=== PATIENT | female | born 1955 | race American Indian/Alaskan Native ===

== ENCOUNTER 2021-01-04 14:46 | Outpatient (REF) | payer MEDICARE, MEDICAID, SELFPAY ==
[2021-01-04 16:52] LABS: Alanine Aminotransferase 9 U/L (0-31); Alkaline Phosphatase 98 U/L (39-117); Anion Gap 14 (12-20); Aspartate Amino Transferase 17 U/L (5-31); Bilirubin Total 0.4 mg/dL (0.0-1.0); Blood Urea Nitrogen 17 mg/dL (9-16); Calcium 9.1 mg/dL (8.4-10.2); Carbon Dioxide 26 mmol/L (22-29); Chloride 105 mmol/L (96-108); Estimated Glomerular Filt Rate 53; Glucose Random 83 mg/dL (60-115); Potassium 4.1 mmol/L (3.3-5.1); Sodium 141 mmol/L (135-145); Total Protein 6.8 g/dL (6.5-8.0)
== END 2021-01-04 14:47 | disposition home or self-care (01) ==
LOC: HO.LAB 14:46
PROVIDERS: PCP Pediatrics; Visit Provider Student in an Organized Health Care Education/Training Program
DX: M17.0 Bilateral primary osteoarthritis of knee (principal); M25.50 Pain in unspecified joint; Z79.899 Other long term (current) drug therapy
CPT/HCPCS: 36415; 80053; 99212

== ENCOUNTER → 2021-06-11 12:48 | Outpatient (BNVA) | payer MEDICARE, MEDICAID, SELFPAY | PROVIDERS: PCP Pediatrics; Visit Provider Nurse Practitioner Family | DX: M17.0 Bilateral primary osteoarthritis of knee (principal) | CPT/HCPCS: 99212 ==

== ENCOUNTER → 2022-07-09 13:48 | Outpatient (BNVA) | payer MEDICARE, MEDICAID, SELFPAY | PROVIDERS: PCP Pediatrics; Visit Provider Nurse Practitioner Family | DX: M17.0 Bilateral primary osteoarthritis of knee (principal) | CPT/HCPCS: 99212 ==

== ENCOUNTER 2023-03-27 10:13 | Outpatient (REF) | payer MEDICARE, MEDICAID, SELFPAY ==
--- NOTE | ~2023-03-27 | XR_ITS ---
EXAMINATION: Bilateral knee x-ray CLINICAL INFORMATION: Bilateral primary osteoarthritis COMPARISON: Previous x-rays most recent from 2018 TECHNIQUE: 3 views of each knee FINDINGS: Right: Bone alignment is normal. No fracture or dislocation. Severe tricompartment osteoarthritis. Large joint effusion. Left: Slight varus angulation. Bone alignment is otherwise normal. No fracture or dislocation. Severe tricompartment arthritis. Small to moderate joint effusion. XR/XR knee RT 3V IMPRESSION: Severe bilateral osteoarthritis.
--- NOTE | ~2023-03-27 | XR_ITS ---
EXAMINATION: Bilateral knee x-ray CLINICAL INFORMATION: Bilateral primary osteoarthritis COMPARISON: Previous x-rays most recent from 2018 TECHNIQUE: 3 views of each knee FINDINGS: Right: Bone alignment is normal. No fracture or dislocation. Severe tricompartment osteoarthritis. Large joint effusion. Left: Slight varus angulation. Bone alignment is otherwise normal. No fracture or dislocation. Severe tricompartment arthritis. Small to moderate joint effusion. XR/XR knee LT 3V IMPRESSION: Severe bilateral osteoarthritis.
[2023-03-27 11:18] LABS: MANUAL DIFF FLAG NO
[2023-03-27 11:37] LABS: Basophils Absolute Auto 0.1 X10*3/uL (0.0-0.2); Basophils Percent Auto 1.1 % (0-2); Eosinophils Absolute Auto 0.3 X10*3/uL (0.0-0.4); Eosinophils Percent Auto 4.9 % (0-4); Hematocrit 37.5 % (37.0-47.0); Hemoglobin 12.2 g/dl (12.0-16.0); Imm Gran Abs Auto 0.01 X10*3/uL (0.00-0.03); Imm Gran Pct Auto 0.2 % (0.0-0.4); Lymphocytes Absolute Auto 2.2 X10*3/uL (1.2-4.9); Lymphocytes Percent Auto 39.8 % (20-40); Mean Corpuscular HGB Conc 32.5 g/dl (31.0-35.0); Mean Corpuscular Hemoglobin 27.3 pg (27.0-33.0); Mean Corpuscular Volume 83.9 fL (80.0-98.0); Mean Platelet Volume 11.3 fL (9.4-12.3); Monocytes Absolute Auto 0.5 X10*3/uL (0.1-1.2); Monocytes Percent Auto 9.3 % (2-11); Neutrophils Absolute Auto 2.5 x10*3/uL (2.0-8.3); Neutrophils Percent Auto 44.7 % (45-73); Platelet Count 249 X10*3/uL (160-400); Red Blood Count 4.47 X10*6/uL (4.20-5.50); Red Cell Distribution Width 13.1 % (11.0-16.0); White Blood Count 5.5 X10*3/uL (4.8-10.8)
[2023-03-27 12:16] LABS: Alanine Aminotransferase 15 U/L (0-31); Alkaline Phosphatase 85 U/L (39-117); Anion Gap 11 (12-20); Aspartate Amino Transferase 19 U/L (5-31); Bilirubin Total 0.4 mg/dL (0.0-1.0); Blood Urea Nitrogen 18 mg/dL (9-16); Carbon Dioxide 26 mmol/L (22-29); Chloride 109 mmol/L (96-108); Estimated Glomerular Filt Rate 53; Glucose Random 89 mg/dL (60-115); Potassium 4.2 mmol/L (3.3-5.1); Sodium 142 mmol/L (135-145); Total Protein 6.9 g/dL (6.5-8.0)
== END 2023-03-27 10:14 | disposition home or self-care (01) ==
LOC: HO.HMGCX 10:13
PROVIDERS: PCP Pediatrics; Visit Provider Nurse Practitioner Family
DX: M17.0 Bilateral primary osteoarthritis of knee (principal); Z79.899 Other long term (current) drug therapy
CPT/HCPCS: 36415; 73562; 80053; 85025

== ENCOUNTER 2024-01-29 12:00 | Outpatient (REF) | payer MEDICARE, MEDICAID, SELFPAY ==
[2024-01-29 14:53] LABS: MANUAL DIFF FLAG NO
[2024-01-29 14:55] LABS: Appearance Urine Clear; Color Urine Yellow; Glucose Urine UA Negative (Negative); Leukocyte Esterase Urine Negative (Negative); Nitrite Urine Negative (Negative); PH 5.5 (5.0-9.0); Specific Gravity - Urine 1.015 (1.005-1.025); Urine Blood Negative (Negative); Urine Ketones Negative (Negative); Urine Protein Negative (Neg-Trace)
[2024-01-29 14:58] LABS: Basophils Absolute Auto 0.1 X10*3/uL (0.0-0.2); Basophils Percent Auto 1.1 % (0-2); Eosinophils Absolute Auto 0.2 X10*3/uL (0.0-0.4); Eosinophils Percent Auto 3.6 % (0-4); Hematocrit 39.2 % (37.0-47.0); Hemoglobin 13.1 g/dl (12.0-16.0); Imm Gran Abs Auto 0.01 X10*3/uL (0.00-0.03); Imm Gran Pct Auto 0.2 % (0.0-0.4); Lymphocytes Absolute Auto 2.1 X10*3/uL (1.2-4.9); Lymphocytes Percent Auto 34.3 % (20-40); Mean Corpuscular HGB Conc 33.4 g/dl (31.0-35.0); Mean Corpuscular Hemoglobin 27.5 pg (27.0-33.0); Mean Corpuscular Volume 82.4 fL (80.0-98.0); Mean Platelet Volume 10.9 fL (9.4-12.3); Monocytes Absolute Auto 0.6 X10*3/uL (0.1-1.2); Monocytes Percent Auto 9.8 % (2-11); Neutrophils Absolute Auto 3.1 x10*3/uL (2.0-8.3); Platelet Count 285 X10*3/uL (160-400); Red Blood Count 4.76 X10*6/uL (4.20-5.50); Red Cell Distribution Width 13.3 % (11.0-16.0); White Blood Count 6.1 X10*3/uL (4.8-10.8)
[2024-01-29 15:03] LABS: Estimated Average Glucose 117 mg/dL; Hemoglobin A1c % 5.7 % (<6.0)
[2024-01-29 15:19] LABS: Alanine Aminotransferase 12 U/L (0-31); Albumin Level 4.1 g/dL (3.5-5.0); Alkaline Phosphatase 76 U/L (39-117); Anion Gap 13 (12-20); Aspartate Amino Transferase 18 U/L (5-31); Bilirubin Direct 0.2 mg/dL (0.0-0.5); Bilirubin Total 0.5 mg/dL (0.0-1.0); Blood Urea Nitrogen 16 mg/dL (9-16); Calcium 9.6 mg/dL (8.4-10.2); Carbon Dioxide 25 mmol/L (22-29); Chloride 107 mmol/L (96-108); Cholesterol 189 mg/dL (<200); Estimated Glomerular Filt Rate > 60; Glucose Fasting 87 mg/dL (60-99); HDL Cholesterol 61 mg/dL (>40); LDL Cholesterol Calculated 112 mg/dL (<100); Potassium 3.7 mmol/L (3.3-5.1); Sodium 141 mmol/L (135-145); Total Protein 7.5 g/dL (6.5-8.0); Triglycerides 82 mg/dL (<150)
[2024-01-29 15:27] LABS: TSH reflex Free T4 0.61 uIU/mL (0.32-4.0); Vitamin D 25-OH Total 49.7 ng/mL (>30)
[2024-01-29 15:37] LABS: Creatinine Urine 90.99 mg/dL; Microalbum/Creatinine Ratio Ur 6.5 ug/mg cr (<30)
== END 2024-01-29 12:01 | disposition home or self-care (01) ==
LOC: HO.CHCLDS 12:00
PROVIDERS: Visit Provider Pediatrics
DX: R73.01 Impaired fasting glucose (principal); I10 Essential (primary) hypertension
CPT/HCPCS: 36415; 80048; 80061; 80076; 81003; 82043; 82306; 82570; 83036; 84443; 85025

== ENCOUNTER 2024-05-10 10:52 | Outpatient (AMB) | payer MEDICARE, MEDICAID, SELFPAY ==
[2024-05-10 11:16] VITALS: BP 142/72; PULSE 75; O2SAT 99; BMI 36.5
--- NOTE | 2024-05-10 11:16 | A.OFFVIS_ITS ---
Vital Signs 05/10/24 11:16 Height 5 ft 1 in Weight 193 lb 5.526 oz BMI 36.5 BP 142/72 H Blood Pressure Location Lt brachial Position Sitting Pulse 75 Pulse Source Pulse Oximeter Pulse Oximetry (%) 99 Oxygen Delivery Method Room Air Intake Visit Reasons: oa/CM Intake Note: Patient last seen o 07/09/2022 by Emilia Dougherty present today for follow up. Patient would like Numbetone, Gabapentin, Minocycline. Burn Nurse Required: No Accompanied by: Self / Same As Patient Allergies adhesive tape [Adhesive Tape] Allergy (Mild, Verified 05/10/24 11:18) BLISTERS latex Allergy (Intermediate, Uncoded 05/10/24 11:18) burning Medication List - Last Reconciled 05/10/24 by David Weathers MD albuterol sulfate 90 mcg/actuation (Ventolin HFA) 2 puffs inhalation Q4H PRN bupropion HCl XL 150 mg PO QAM calcium carbonate-vitamin D3 500 mg-10 mcg (400 unit) 1 tab PO DAILY cyclobenzaprine 10 mg PO BEDTIME duloxetine 60 mg PO DAILY fluticasone propionate 50 mcg/actuation intranasal fluticasone propionate 220 mcg/actuation (Flovent HFA) 2 puffs inhalation BID gabapentin 300 mg PO TID ibuprofen 800 mg PO Q8H lisinopril 20 mg PO DAILY meclizine 25 mg PO TID PRN minocycline 50 mg PO DAILY nabumetone 750 mg PO BID omeprazole 20 mg PO DAILY simvastatin 40 mg PO DAILY trazodone 100 mg PO BEDTIME PRN HPI Comments Details: This is a 68-year-old female with bilateral knee osteoarthritis who presents for follow-up. She was last seen by Macrina Dougherty 06/2022. She states that she continues to have bilateral knee pain. She states that she saw an orthopedist in the past and knee replacement was discussed but patient does not want to proceed with it. She states that she had bilateral knee injections about a year ago and states that it provides moderate relief. She can not think of any side effects related to steroid injections. She does not have diabetes. [facility] Medical History Breast cancer Hyperlipidemia COPD (chronic obstructive pulmonary disease) Osteoarthritis Obesity Fibromyalgia HTN (hypertension) Surgical History H/O hemorrhoidectomy History of breast surgery Hx of hernia repair Hx of cholecystectomy Family History Father Diabetes Mother Breast cancer Son Lung cancer Social History Household Members: Significant Other Housing: House Alcohol intake: never Patient Tobacco Use Status: Former Tobacco user Review of Systems [facility] Reports arthralgias and Reports stiffness Physical Exam Vital Signs: Last Vital Signs Pulse 75 05/10/24 11:16 BP 142/72 H 05/10/24 11:16 Pulse Ox 99 05/10/24 11:16 Oxygen Delivery Method Room Air 05/10/24 11:16 BMI result Body Mass Index 36.5 Const General: cooperative, healthy appearing and comfortable Nutritional Appearance: obese morbidly obese Orientation/consciousness: patient oriented x3 Limitations: ambulation with cane HEENT Head: Yes normocephalic and Yes atraumatic Resp Effort & Inspection: normal respiratory effort and able to speak in complete sentences Skin General skin exam: no rashes or lesions noted Neuro General: patient oriented x3 Extrem Other: Bilateral knee warmth Bilateral knee pain with full flexion-extension Significantly limited left knee flexion Office Procedures Joint Injection/Drain Joint Injection/Drain Primary Site: right knee Secondary Site: left knee Prep: site was prepped using sterile technique and ethochloride spray was applied Injected: 40 mg of, Kenalog, with 1 mL of, 1% plain lidocaine and in the joint Approach Used: medial parapatellar Procedure: The patient tolerated the procedure well Coding Details: With the patient's consent the right knee was prepped with ChloraPrep and alcohol. The skin was anesthetized with 2 cc of 1% lidocaine. The knee was then injected with 40 mg of triamcinolone and 1 cc of I % lidocaine. Then, the left knee was prepped with ChloraPrep and alcohol. The skin was anesthetized with 2 cc of 1% lidocaine. The knee was then injected with 40 mg of triamcinolone and 1 cc of I % lidocaine. The patient tolerated both procedures well with no immediate adverse effects. - Large joint (Large joint x2) Procedure code (CPT) selection complete Results Reviewed Results Reviewed: Ordering Physician: Emilia Dougherty NP Date of Service: 03/27/23 Procedure(s): XR knee LT 3V Accession Number(s): [id number] cc: Emilia Dougherty NP~ EXAMINATION: Bilateral knee x-ray CLINICAL INFORMATION: Bilateral primary osteoarthritis COMPARISON: Previous x-rays most recent from 2018 TECHNIQUE: 3 views of each knee FINDINGS: Right: Bone alignment is normal. No fracture or dislocation. Severe tricompartment osteoarthritis. Large joint effusion. Left: Slight varus angulation. Bone alignment is otherwise normal. No fracture or dislocation. Severe tricompartment arthritis. Small to moderate joint effusion. XR/XR knee LT 3V IMPRESSION: Severe bilateral osteoarthritis. Assessment & Plan Assessment & Plan (1) Primary osteoarthritis of knees, bilateral: Code(s): M17.0 - Bilateral primary osteoarthritis of knee Category: Medical Plan: This is a 68-year-old female with fibromyalgia and bilateral knee osteoarthritis who presents for follow-up. She was last seen by Macrina Dougherty 06/2022. She states that she saw an orthopedist in the past and knee replacement was discussed but patient does not want to proceed with it. She states that she had bilateral knee injections about a year ago and states that it provides moderate relief. With patient's consent, both knees were injected with Kenalog today. Follow-up in 3 months Plan I spent 17 minutes reviewing patient's chart, evaluating patient, counseling patient and documenting in the chart Orders: Orders AMB Joint Injection/Aspiration Today M17.0 - Bilateral primary osteoarthritis of knee Coding Level of Care Code Est Pt Level 3 (37338) Diagnoses Primary osteoarthritis of knees, bilateral M17.0 CPT Codes Coding - 48047 Large joint: 93266 - Large joint ([id number])
== END 2024-05-10 11:55 | disposition home or self-care (01) ==
PROVIDERS: PCP Pediatrics; Visit Provider Student in an Organized Health Care Education/Training Program
DX: M17.0 Bilateral primary osteoarthritis of knee (principal)
CPT/HCPCS: 20610; 99213

== ENCOUNTER → 2024-05-10 10:52 | Outpatient (BNVA) | payer MEDICARE, MEDICAID, SELFPAY | PROVIDERS: PCP Pediatrics; Visit Provider Student in an Organized Health Care Education/Training Program | DX: M17.0 Bilateral primary osteoarthritis of knee (principal) | CPT/HCPCS: 20610; 99212; J2003; J3301 ==

== ENCOUNTER 2024-08-10 11:30 | Outpatient (AMB) | payer MEDICARE, MEDICAID, SELFPAY ==
--- NOTE | 2024-08-10 11:33 | A.OFFVIS_ITS ---
Vital Signs 08/10/24 11:37 Height 5 ft 1 in Weight 188 lb 7.924 oz BMI 35.6 BP 122/70 Blood Pressure Location Lt brachial Position Sitting Pulse 86 Pulse Source Pulse Oximeter Pulse Oximetry (%) 97 Oxygen Delivery Method Room Air Intake Visit Reasons: Knee OA/inj Intake Note: Patient presents for knee OA/injection. Allergies adhesive tape [Adhesive Tape] Allergy (Mild, Verified 08/10/24 11:37) BLISTERS latex Allergy (Intermediate, Uncoded 05/10/24 11:18) burning Medication List - Last Reconciled 08/10/24 by David Weathers MD albuterol sulfate 90 mcg/actuation (Ventolin HFA) 2 puffs inhalation Q4H PRN bupropion HCl XL 150 mg PO QAM calcium carbonate-vitamin D3 500 mg-10 mcg (400 unit) 1 tab PO DAILY cyclobenzaprine 10 mg PO BEDTIME duloxetine 60 mg PO DAILY fluticasone propionate 50 mcg/actuation intranasal fluticasone propionate 220 mcg/actuation (Flovent HFA) 2 puffs inhalation BID gabapentin 300 mg PO TID ibuprofen 800 mg PO Q8H lisinopril 20 mg PO DAILY meclizine 25 mg PO TID PRN minocycline 50 mg PO DAILY nabumetone 750 mg PO BID omeprazole 20 mg PO DAILY simvastatin 40 mg PO DAILY trazodone 100 mg PO BEDTIME PRN HPI Comments Details: 69-year-old female with bilateral knee osteoarthritis returns for follow-up. She states that bilateral knee cortisone injections done 3 months ago provided moderate relief but she feels that the effect is wearing off and would like repeat injections. Initial history: This is a 68-year-old female with bilateral knee osteoarthritis who presents for follow-up. She was last seen by Macrina Dougherty 06/2022. She states that she continues to have bilateral knee pain. She states that she saw an orthopedist in the past and knee replacement was discussed but patient does not want to proceed with it. She states that she had bilateral knee injections about a year ago and states that it provides moderate relief. She can not think of any side effects related to steroid injections. She does not have diabetes. [facility] Medical History Breast cancer Hyperlipidemia COPD (chronic obstructive pulmonary disease) Osteoarthritis Obesity Fibromyalgia HTN (hypertension) Surgical History H/O hemorrhoidectomy History of breast surgery Hx of hernia repair Hx of cholecystectomy Family History Father Diabetes Mother Breast cancer Son Lung cancer Social History Household Members: Significant Other Housing: House Alcohol intake: never Patient Tobacco Use Status: Former Tobacco user Female Reproductive History Menstrual Total pregnancies: 3 Number of Living Children: 3 Review of Systems [facility] Reports arthralgias and Reports stiffness Physical Exam Vital Signs: Last Vital Signs Pulse 86 08/10/24 11:37 BP 122/70 08/10/24 11:37 Pulse Ox 97 08/10/24 11:37 Oxygen Delivery Method Room Air 08/10/24 11:37 BMI result Body Mass Index 35.6 Const General: cooperative, healthy appearing and comfortable Nutritional Appearance: obese morbidly obese Orientation/consciousness: patient oriented x3 Limitations: ambulation with cane HEENT Head: Yes normocephalic and Yes atraumatic Resp Effort & Inspection: normal respiratory effort and able to speak in complete sentences Skin General skin exam: no rashes or lesions noted Neuro General: patient oriented x3 Extrem Other: Bilateral knee warmth Bilateral knee pain with full flexion-extension Significantly limited left knee flexion Office Procedures Joint Injection/Aspiration Joint Injection/Aspiration Primary Site: right knee Secondary Site: left knee Prep: site was prepped using sterile technique and ethochloride spray was applied Injected: 40 mg of, Kenalog, with 1 mL of, 1% plain lidocaine and in the joint Approach Used: medial parapatellar Procedure: The patient tolerated the procedure well Coding Details: With the patient's consent the left knee was prepped with ChloraPrep and alcohol. The skin was anesthetized with 2 cc of 1% lidocaine. The knee was then injected with 40 mg of triamcinolone and 1 cc of I % lidocaine. With the patient's consent the right knee was prepped with ChloraPrep and alcohol. The skin was anesthetized with 2 cc of 1% lidocaine. The knee was then injected with 40 mg of triamcinolone and 1 cc of I % lidocaine. The patient tolerated both procedures well with no apparent immediate adverse effects. 72107 - Large joint (Large joint x2) Procedure code (CPT) selection complete Assessment & Plan Assessment & Plan (1) Primary osteoarthritis of knees, bilateral: Code(s): M17.0 - Bilateral primary osteoarthritis of knee Category: Medical Plan: This is a 69-year-old female with fibromyalgia and bilateral knee osteoarthritis who presents for follow-up. She states that she saw an orthopedist in the past and knee replacement was discussed but patient does not want to proceed with it. Last visit 3 months ago both knees were injected with Kenalog with good relief. She feels that the effect is wearing off and would like repeat injections. With patient's consent, both knees were injected with Kenalog today. Follow-up in 3 months Plan I spent 17 minutes reviewing patient's chart, evaluating patient, counseling patient and documenting in the chart Orders: Orders AMB Joint Injection/Aspiration Today M17.0 - Bilateral primary osteoarthritis of knee Coding Level of Care Code Est Pt Level 3 (69647) Diagnoses Primary osteoarthritis of knees, bilateral M17.0 CPT Codes Coding - 84367 Large joint: 32873 - Large joint ([id number])
[2024-08-10 11:37] VITALS: BP 122/70; PULSE 86; O2SAT 97; BMI 35.6
== END 2024-08-10 12:02 | disposition home or self-care (01) ==
PROVIDERS: PCP Pediatrics; Visit Provider Student in an Organized Health Care Education/Training Program
DX: M17.0 Bilateral primary osteoarthritis of knee (principal)
CPT/HCPCS: 20610; 99213

== ENCOUNTER → 2024-08-10 11:30 | Outpatient (BNVA) | payer MEDICARE, MEDICAID, SELFPAY | PROVIDERS: PCP Pediatrics; Visit Provider Student in an Organized Health Care Education/Training Program | DX: M17.0 Bilateral primary osteoarthritis of knee (principal) | CPT/HCPCS: 20610; 99212 ==

== ENCOUNTER 2025-02-14 11:30 | Outpatient (AMB) | payer MEDICARE, MEDICAID, SELFPAY ==
--- NOTE | 2025-02-14 11:34 | A.OFFVIS_ITS ---
Vital Signs 02/14/25 11:39 Height 5 ft 1 in Weight 187 lb 6.287 oz BMI 35.4 BP 148/77 H Blood Pressure Location Lt brachial Position Sitting Pulse 94 Intake Visit Reasons: [place] screening + HPylori Intake Note: Ekaterina presents in the office as a Colonoscopy screening and H Pylori. CC: She states that she is not having any concerns - just due for a colo and tested pos for H PYLORI. She never got the treatment for the bacteria. Rn Residential Required: No Allergies adhesive tape [Adhesive Tape] Allergy (Mild, Verified 02/14/25 11:40) BLISTERS latex Allergy (Intermediate, Uncoded 02/14/25 11:40) burning HPI HPI [place] screening + HPylori: Details: 69-year-old female here for preprocedural meeting to discuss a screening colonoscopy. Apparently, she is also referred for an H pylori infection. She is referred by [facility]. PMX Obesity-BMI 32 COPD Hypertension High cholesterol Impaired fasting glucose Depression Vertigo GERD History of breast cancer Fibromyalgia syndrome * SURGICAL HISTORY Cholecystectomy Hemorrhoidectomy Hernia repair - umbilical Breast surgery - Rtlumpe catina Tonsillectomy * ALLERGIES Adhesive tape Latex * [employer] LABS: needs labs TODAY'S VISIT Apparently she recently had a positive Cologuard screening. Her last colonoscopy was >10 years ago and was negative. No bowel or upper GI problems. No anes or sed problems Her COPD is well controlled and she denies any cardiac problems. No ID problems. SHe has a strong FHX of breast, ovarian cancer on mothers side and her brother had stomach cancer. We discussed possible EGD but she wants to think about it. ? low education [facility] Medical History (Updated 02/14/25 @ 11:58 by NATASHA Esteves) Breast cancer Hyperlipidemia COPD (chronic obstructive pulmonary disease) Osteoarthritis Obesity Fibromyalgia HTN (hypertension) Surgical History (Updated 02/14/25 @ 11:40 by EHSAN Quijano) Hx of colonoscopy S/P carpal tunnel release H/O hemorrhoidectomy History of breast surgery Hx of hernia repair Hx of cholecystectomy Family History Father Diabetes Mother Breast cancer Son Lung cancer Social History Household Members: Significant Other Housing: House Alcohol intake: never Patient Tobacco Use Status: Former Tobacco user Review of Systems Const Denies fatigue, Denies fever(s), Denies night sweats, Denies poor appetite and Denies weight loss ENT Reports Normal hearing present, Denies dental pain, Denies dysphagia, Denies hearing loss, Denies mouth pain, Denies odynophagia, Denies throat swelling, Denies tongue swelling and Reports other (Dentition adequate) Card Reports no additional complaints Resp Reports no additional complaints GI Details: Denies abdominal pain, Denies melena, Denies bloating, Denies hematochezia, Denies constipation, Denies GI cramping, Denies dysphagia, Denies excessive flatus, Denies early satiety, Denies heartburn, Denies diarrhea, Denies nausea, Denies odynophagia, Denies vomiting and Denies hematemesis Skin/Breast Denies pruritus, Denies lesions, Denies rash and Denies jaundice Neuro Reports Normal hearing present and Denies Abnormal speech present Endo Denies fatigue Aller/Immun Denies throat swelling and Denies tongue swelling Physical Exam Vital Signs: Last Vital Signs Pulse 94 02/14/25 11:39 BP 148/77 H 02/14/25 11:39 BMI result Body Mass Index 35.4 Const General: cooperative, no acute distress, well developed and well groomed Nutritional Appearance: well nourished and obese Orientation/consciousness: oriented to person, oriented to place and oriented to time Limitations: No language barrier and ambulation with cane HEENT Head: Yes normocephalic and Yes atraumatic Eyes General: appearance normal, both eyes and all related structures Pupils: Equal, round and reactive pupils present Neck Neck: Yes normal visual inspection and Yes no lymphadenopathy Thyroid: Thyroid normal Resp Effort & Inspection: normal respiratory effort and able to speak in complete sentences Auscultation: clear to auscultation bilaterally Cardio Rate: regular rate Rhythm: regular rhythm Heart sounds: Normal, physiologic split S2 sound present Peripheral pulses: radial pulses present and posterior tibial pulses present GI Inspection: No distended, Yes Abdominal panniculus present, Yes obesity and Yes striae Palpation (GI): Soft to palpation, nontender, no guarding, not rigid and No hepatosplenomegaly present Percussion: Yes normal to percussion Auscultation: normal bowel sounds Rectal Exam - Female: deferred Skin General skin exam: no rashes or lesions noted, turgor normal, skin not dry, no jaundice, No spider nevi and no striae Rashes: no rashes Nails: normal Neuro General: oriented to person, oriented to place and oriented to time Cranial nerves: Yes Equal, round and reactive pupils present and Yes Normal hearing present Speech: No Abnormal speech present Extrem General: Yes normal to inspection, No clubbing, No cyanosis and No edema Psych Appearance: grossly normal and well kempt Mental Status: mental status grossly normal Speech and movement: Normal speech and movement present Affect: normal affect Attitude: cooperative Thought process: Circumstantial thought process present and not confabulating Thought content: Normal thought content present Insight: Limited insight present (Psych) Judgement: Limited judgement present (Psych) Assessment & Plan Assessment & Plan (1) Pre-op examination: Code(s): Z01.818 - Encounter for other preprocedural examination Category: Medical (2) GERD (gastroesophageal reflux disease): Code(s): K21.9 - Gastro-esophageal reflux disease without esophagitis Category: Medical (3) Obesity: Code(s): E66.9 - Obesity, unspecified Category: Medical Plan Apparently she recently had a positive Cologuard screening. Her last colonoscopy was >10 years ago and was negative. No bowel or upper GI problems. No anes or sed problems Her COPD is well controlled and she denies any cardiac problems. No ID problems. SHe has a strong FHX of breast, ovarian cancer on mothers side and her brother had stomach cancer. We discussed possible EGD but she wants to think about it. ? low education Orders: Orders Comprehensive Met. Panel Today Z01.818 - Encounter for other preprocedural examination Complete Blood Count Auto Diff Today Z01.818 - Encounter for other preprocedural examination Colonoscopy - GI Use Only Today Z01.818 - Encounter for other preprocedural examination Medications: New sodium,potassium,mag sulfates 17.5-3.13-1.6 gram (Suprep Bowel Prep Kit) 480 mL orally; FOR COLONOSCOPY PREP 354 mL 0RF Coding Level of Care Code New Pt Level 3 (55107) Diagnoses Pre-op examination Z01.818 GERD (gastroesophageal reflux disease) K21.9 Obesity E66.9
[2025-02-14 11:39] VITALS: BP 148/77; PULSE 94; BMI 35.4
--- OUTSIDE RECORDS SUMMARY | 2025-02-14 13:40 | XMS_ITS | Encounter Summary ---
Author Organization [employer] Address [address] [place] [address] Care Team Providers Care Mechanical Manager Name Role Phone Regi Martínez MD Primary Care Provider [phone] Reason for Visit * Reason Comments Med Refill Encounter Details Date Type Department Care Team ([facility] Contact Info) Description 01/15/2024 Refill [facility] MEDICINE [address], [place] [phone] Regi Martínez MD [address] [place], [place] [phone] Recurrent major depressive disorder, in full remission (CMS/HCC); Gastroesophageal reflux disease without esophagitis; Mixed hyperlipidemia; Vertigo Social History Tobacco Use Types Packs/Day Years Used Date Smoking Tobacco: Never Assessed Comments Unknown Sex and Gender Information Value Date Recorded Sex Assigned at Female 08/18/2022 10:19 AM EDT Legal Sex Female 10:19 AM EDT Gender Identity Female 01/29/2024 8:57 AM EDT Sexual Orientation Don't know 01/29/2024 8: 57 AM EDT documented as of this encounter Plan of Treatment Upcoming Encounters Date Type Department Care Team (Late st Contact Info) Description 03/15/2025 11:30 AM EDT Office Visit [facility] [address] [place] [address] Regi Martínez MD [address], [place] [phone] documented as of this encounter Visit Diagnoses Diagnosis Recurrent major depressive disorder, in full remission (CMS/HCC) Gastroesophageal reflux disease without esophagitis Esophageal reflux Mixed hyperlipidemia Vertigo Dizziness and giddiness documented in this encounter Care Teams Mechanical Manager Relationship Specialty Start Date End Date Regi Martínez MD [address] [place] [id number] PCP - General Family Medicine 10/19/18 documented as of this encounter
--- OUTSIDE RECORDS SUMMARY | 2025-02-14 13:40 | XMS_ITS | Clinical Summary ---
Author Organization [employer] Address [address] [facility] 7[address] [place] [address] Care Team Providers Care Entry Level Recruiter Name Role Phone Regi Martínez MD Primary Care Provider [phone] Allergies Active Allergy Reactions Criticality Noted Date Comments Latex 03/19/2017 Other Reaction(s): YAN ON SKIN, Rash/Dermatitis Wound Dressing Adhesive 01/29/2024 Medications * This document contains information received from the source organization and may not represent a complete record from that organization. hydrocortisone 2.5 % creamIndications: Rash APPLY TO AFFECTED AREA OF RECTUM TWICE A DAY 28 g 1 03/13/20 23 Active cholecalciferol (D3 Super Strength) 50 MCG (1999) capsule Take 1 capsule (50 mcg) by mouth Once per day. 90 capsule 3 04/26/20 24 Active tiotropium (Spiriva HandiHaler) 18 MCG inhalation capsuleIndication s: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) Place 1 capsule (18 mcg) into inhaler and inhale in the morning. 90 capsule 2 07/27/20 24 Active buPROPion XL (Wellbutrin XL) 150 MG 24 hr tabletIndications :Grief Take 1 tablet (150 mg) by mouth Once per day. Do not crush, chew, or split. 90 tablet 1 07/27/20 24 Active minocycline 50 MG capsule Take 1 capsule (50 mg) by mouth Once per day. 90 capsule 1 07/27/20 24 Active lisinopril 20 MG tabletIndications :Hypertension, unspecified type Take 1 tablet (20 mg) by mouth Once per day. 90 tablet 3 07/27/20 24 Active fluticasone (Flonase) 50 MCG/ACT nasal sprayIndications: Recurrent major depressive disorder, in full remission (CMS/HCC),Gastroe sophageal reflux disease without esophagitis,Mixed hyperlipidemia SPRAY 1 SPRAY INTO EACH NOSTRIL EVERY DAY WHILE LOOKING DOWN 48 mL 3 07/27/20 24 Active meclizine (Antivert) 25 MG tabletIndications :Vertigo Take 1 tablet (25 mg) by mouth if needed in the morning, at noon, and at bedtime for dizziness. 30 tablet 3 07/27/20 24 Active traZODone (Desyrel) 100 MG tablet TAKE 2 TABLETS BY MOUTH ONCE A DAY AT BEDTIME 180 tablet 1 07/27/20 24 Active VALACYCLOVIR HCL PO Take by mouth. 08/06/20 15 Active clotrimazole-beta methasone (Lotrisone) cream Apply topically every 12 (twelve) hours. 45 g 2 07/27/20 24 Active Calcium Carb-Cholecalcife rol 600-10 MG-MCG tablet Take 1 tablet by mouth every 12 (twelve) hours. 180 tablet 2 07/27/20 24 Active ibuprofen 800 MG tablet Take 1 tab orally tid prn pain 60 tablet 3 07/28/20 24 Active nabumetone (Relafen) 750 MG tablet Take 1 tablet (750 mg) by mouth if needed in the morning and at bedtime for mild pain. 60 tablet 3 07/28/20 24 Active Ventolin HFA 108 (90 Base) MCG/ACT inhalerIndication s: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) INHALE TWO PUFFS EVERY 4 HOURS NEEDED FOR WHEEZING 18 g 1 10/17/20 24 Active desonide (DesOwen) 0.05 % cream Apply topically 2 times daily. 15 g 3 12/14/19 25 Active Blood Pressure kit Check BP daily prn 1 kit 12/14/19 25 Active Mometasone Furoate (Asmanex HFA) 100 MCG/ACT aerosolIndication s: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) Inhale 1 puff bid 39 g 2 12/14/19 25 Active gabapentin (Neurontin) 300 MG capsule TAKE ONE CAPSULE AT BEDTIME 90 capsule 1 02/08/20 25 Active omeprazole (PriLOSEC) [address] capsuleIndication s:Recurrent major depressive disorder, in full remission (CMS/HCC),Gastroe sophageal reflux disease without esophagitis,Mixed hyperlipidemia TAKE ONE CAPSULE DAILY BEFORE BREAKFAST 90 capsule 1 02/08/20 25 Active DULoxetine (Cymbalta) [address] capsule TAKE ONE CAPSULE DAILY 90 capsule 1 02/09/20 25 Active simvastatin (Zocor) 40 MG tabletIndications :Recurrent major depressive disorder, in full remission (CMS/HCC),Gastroe sophageal reflux disease without esophagitis,Mixed hyperlipidemia TAKE ONE TABLET DAILY 90 tablet 1 02/09/20 25 Active simvastatin (Zocor) 40 MG tabletIndications :Recurrent major depressive disorder, in full remission (CMS/HCC),Gastroe sophageal reflux disease without esophagitis,Mixed hyperlipidemia Take 1 tablet (40 mg) by mouth Once per day. 90 tablet 1 07/27/20 24 025 Discontinued omeprazole (PriLOSEC) [address] capsuleIndication s:Recurrent major depressive disorder, in full remission (CMS/HCC),Gastroe sophageal reflux disease without esophagitis,Mixed hyperlipidemia Take 1 capsule (20 mg) by mouth before breakfast. 90 capsule 1 07/27/20 24 025 Discontinued DULoxetine (Cymbalta) [address] capsule Take 1 capsule (60 mg) by mouth Once per day. 90 capsule 1 07/27/20 24 025 Discontinued gabapentin (Neurontin) 300 MG capsule Take 1 capsule (300 mg) by mouth at bedtime. 90 capsule 1 07/27/20 24 025 Discontinued Active Problems Problem Noted Date Diagnosed Date Primary osteoarthritis of both knees 12/14/2024 Food insecurity 02/19/2024 Assessment & Plan (02/24/2024 11:01 AM EDT): During IBH Consult Ekaterina presenting with depressed mood, loss of interests/pleasure , changes in sleep difficulty falling asleep, change in appetite or weight reduce appetite, psychomotor retardation, trouble concentrating, thoughts of worthlessness or guilt, fatigue/loss of energy, inappropriate guilt , hopelessness, worthlessness , difficulty concentrating; for a period of 0-6 mo, for all symptoms in the context of and financial concern. Ekaterina's unexpectedly six months ago during a routine surgery at [facility]. This event has led to an increase of extreme sadness and hopelessness; and is impacting negatively Ekaterina's social functioning. Significant lack of support/network also exacerbates sxs. During today's session, Ekaterina also reported food insecurity and screening positive for SDOH. PLAN: (check all that apply) Continue with current services (defined as services in the past 12 months) . Referral for OP individual therapy placed on 02/04/24. Recommended [facility] numbers and the Behavioral Health Help Line for same-day appointments. Information provided. CM referral placed by clinician to assist with SDOH (food insecurity). Mixed simple and mucopurulent chronic bronchitis 02/01/2024 Grief 01/29/2024 Assessment & Plan (02/24/2024 11:01 AM EDT): During IBH Consult Ekaterina presenting with depressed mood, loss of interests/pleasure , changes in sleep difficulty falling asleep, change in appetite or weight reduce appetite, psychomotor retardation, trouble concentrating, thoughts of worthlessness or guilt, fatigue/loss of energy, inappropriate guilt , hopelessness, worthlessness , difficulty concentrating; for a period of 0-6 mo, for all symptoms in the context of and financial concern. Ekaterina's unexpectedly six months ago during a routine surgery at [facility]. This event has led to an increase of extreme sadness and hopelessness; and is impacting negatively Ekaterina's social functioning. Significant lack of support/network also exacerbates sxs. During today's session, Ekaterina also reported food insecurity and screening positive for SDOH. PLAN: (check all that apply) Continue with current services (defined as services in the past 12 months) . Referral for OP individual therapy placed on 02/04/24. Recommended [facility] numbers and the Behavioral Health Help Line for same-day appointments. Information provided. CM referral placed by clinician to assist with SDOH (food insecurity). Assessment & Plan (02/04/2024 12:48 PM EDT): During IBH Consult Ekaterina presenting with depressed mood, loss of interests/pleasure , changes in sleep difficulty falling asleep, change in appetite or weight reduce appetite, psychomotor retardation, trouble concentrating, thoughts of worthlessness or guilt, fatigue/loss of energy, inappropriate guilt , hopelessness, worthlessness , passive suicidal ideation w/o plan; for a period of 0-6 mo, for all symptoms in the context of . Ekaterina's unfortunately unexpectedly six months ago. This event has led to an increase of extreme sadness and hopelessness; and is impacting negatively her social functioning. Significant lack of support/network also exacerbates sxs. PLAN: (check all that apply) New/Additional Services needed On-site non-integrated services Off-site services for Behavioral Health Integration Plan Internal Follow up with I External OP therapy referral Patient Self Plan Patient to utilize skills provided in intervention , Patient to reach out to [facility] team as needed, Comply with medication , Patient to engage in OP therapy , and Patient to reach out to [facility] as needed Hypertension 2012 Mixed hyperlipidemia 2012 Chronic obstructive lung disease 2012 Overweight 2012 Malignant neoplasm of breast 05/08/2010 Encounters Date Type Department Care Team Description 02/14/2025 Orders Only GENERIC EXTERNAL DATA DEPARTMENT Provider, Generic External Data 02/07/2025 Refill [facility] [address] [place] [address] Regi Martínez MD Recurrent major depressive disorder, in full remission (CMS/HCC); Gastroesophageal reflux disease without esophagitis; Mixed hyperlipidemia 02/04/2025 Refill [facility] [address] [place] [address] Regi Martínez MD Recurrent major depressive disorder, in full remission (CMS/HCC); Gastroesophageal reflux disease without esophagitis; Mixed hyperlipidemia 12/30/2024 Population Health Risk Score [facility] () Department [address] [place] [phone] Provider, Population Health Generic 12/14/2024 11:30 AM EST Office Visit [facility] [address] [place] [address] Regi Martínez MD Overweight (Primary Dx); Dietary counseling; Exercise counseling; 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); Grief; Hypertension, unspecified type; Primary osteoarthritis of both knees 12/14/2024 Travel 11/25/2024 Telephone [facility] [address] [place], [place] [phone] Regi Martínez MD 11/16/2024 Travel from Last 3 Months Social History Tobacco Use Types Packs/Day Years Used Date Smoking Tobacco: Never Passive Smoke Exposure: Never Smokeless Tobacco: Never Tobacco Cessation:Counseling Given: Not Answered Depression Answer Date Recorded Patient Health Questionnaire-9 Score 0 12/14/2024 Patient Health Questionnaire-9 Score 0 12/14/2024 Last PHQ-9: Questionnaire Data Not on file 0 12/14/2024 Housing Stability Answer Date Recorded What is your housing situation today? I have francesca rajput 01/29/[address] you li ve. Do you have problems with any of the following? None of the above 01/29/2024 Food Insecurity Answer Date Recorded Within the past 12 months, y ou worried that your food would run out before you got money to buy more: Never True 01/29/2024 Within the past 12 months,th e food you bought just didn't last and you didn't have enough money to get more: Never True 09/2024 Transportation Answer Date Recorded In the past 12 months, has l ack of transportation kept you from medical appts, meetings, work or from getting things needed for daily living? Yes, it has kept me from non-medical meetings, work, or getting things that I need 01/29/2024 Utilities Answer Date Recorded In the past 12 months, has t he electric, gas, oil or water company threatened to shut off services in your home? No 01/29/2024 Depression Answer Date Recorded Patient Health Questionnaire-2 Score 0 12/14/2024 Comments Unknown Sex and Gender Information Value Date Recorded Sex Assigned at Female 08/18/2022 10:19 AM EDT Legal Sex Female 10:19 AM EDT Gender Identity Female 01/29/2024 8:57 AM EDT Sexual Orientation Don't know 01/29/2024 8: 57 AM EDT Last Filed Vital Signs Vital Sign Reading Time Taken Comments Blood Pressure 140/84 12/14/2024 11:01 AM EST Pulse 84 12/14/2024 11:01 AM EST Temperature 36.3 ??C (97.3 ??F) 12/14/2024 11:[address] Respiratory Rate 20 12/14/2024 11:01 AM EST Oxygen Saturation 97% 12/14/2024 11:01 AM EST Inhaled Oxygen Concentration - - Weight 87 kg (191 lb 12.8 oz) 12/14/2024 11:01 A M EST Height 158 cm (5' 2.21 ) 12/14/2024 11:01 AM EST Body Mass Index 34.85 12/14/2024 11:01 AM EST Plan of Treatment Upcoming Encounters Date Type Department Care Team ([facility] st Contact Info) Description 03/15/2025 11:30 AM EDT Office Visit [facility] [address] [place] [address] Regi Martínez MD [address] [place] [address] Health Maintenance Due Date Last Done Comments CT Colonography 1953 Colonoscopy 1953 FIT 1953 FOBT 1955 Sigmoidoscopy 1953 Hepatitis C Screening 1971 Zoster Vaccines (1 of 2) 2003 RSV Patients and Patients Aged 60 years or older (1 - Risk 60-74 years 1-dose series) 2013 Pneumococcal Vaccine: 50+ Years (2 of 2 - PPSV23) 09/03/2018 07/09/2018 COVID-19 Vaccine ( - 2023-2 5 season) 2024 Influenza Vaccine (#1) 2024 9, 07/01/2013 Mammogram 09/02/2024 09/02/2023 SDOH Screening 01/28/2025 01/29/2024 Tobacco Screening 01/28/2025 01/29/2024 Alcohol/Substance Use Screening 12/14/2025 12/14/2024 Depression Screening 12/14/2025 12/14/2024, 12/14/2024 Colorectal Cancer Screening 02/14/2027 FIT DNA/Cologuard 02/14/2027 02/15/2024 DTaP/Tdap/Td Vaccines (2 - T d or Tdap) 11/25/2028 11/25/2018 Lipid Panel 01/28/2029 01/29/2024 HIB Vaccines Aged Out No longer eligi ble based on patient's age to complete this topic HPV Vaccines Aged Out No longer eligi ble based on patient's age to complete this topic Hepatitis A Vaccines Aged Out No long er eligible based on patient's age to complete this topic Hepatitis B Vaccines Aged Out No long er eligible based on patient's age to complete this topic IPV Vaccines Aged Out No longer eligi ble based on patient's age to complete this topic Meningococcal Vaccine Aged Out No netta susan eligible based on patient's age to complete this topic RSV under 20 months Aged Out No longe r eligible based on patient's age to complete this topic Rotavirus Vaccines Aged Out No longer eligible based on patient's age to complete this topic Procedures Procedure Name Priority Date/Time Associated Diagnosis Comments CBC WITH AUTO DIFFERENTIAL Routine 02/14/2025 12:59 PM EDT LAB COLOGUARD?? COLON CANCER SCREEN Routine 02/15/2024 5:00 AM EDT Primary hypertension Colon cancer screening LIPID PANEL, STANDARD Routine 01/29/2024 12:02 PM EDT Primary hypertension HM MAMMOGRAPHY Routine 09/02/2023 5:19 PM EST from Last 3 Months or Most Recently Relevant to Health Maintenance Results * (ABNORMAL) CBC auto differential (02/14/2025 12:59 PM EDT) White Blood Count 6.6 4.8 - 10.8 X10*3/uL [facility] Red Blood Count 4.72 4.20 - 5.50 X10*6/uL [facility] Hemoglobin 13.6 12.0 - 16.0 g/dl [facility] Hematocrit 40.4 37.0 - 47.0 % [facility] Mean Corpuscular Volume 85.6 80.0 - 98.0 fL [facility] Mean Corpuscular Hemoglobin 28.8 27.0 - 33.0 pg [facility] Mean Corpuscular HGB Conc 33.7 31.0 - 35.0 g/dl [facility] Red Cell Distribution Width 12.7 11.0 - 16.0 % [facility] Platelet Count 257 160 - 400 X10*3/uL [facility] Mean Platelet Volume 10.5 9.4 - 12.3 fL [facility] Neutrophils Percent Auto 45.6 45 - 73 % [facility] Imm Gran Pct Auto 0.5(H) 0.0 - 0.4 % [facility] Lymphocytes Percent Auto 39.1 20 - 40 % [facility] Monocytes Percent Auto 8.8 2 - 11 % [facility] Eosinophils Percent Auto 5.2(H) 0 - 4 % [facility] Basophils Percent Auto 0.8 0 - 2 % [facility] NRBC Pct Auto 0.0 0.0 - 0.2 /100WBC [facility] Neutrophils Absolute Auto 3.0 2.0 - 8.3 x10*3/uL [facility] Imm Gran Abs Auto 0.03 0.00 - 0.03 X10*3/uL [facility] Lymphocytes Absolute Auto 2.6 1.2 - 4.9 X10*3/uL [facility] Monocytes Absolute Auto 0.6 0.1 - 1.2 X10*3/uL [facility] Eosinophils Absolute Auto 0.3 0.0 - 0.4 X10*3/uL [facility] Basophils Absolute Auto 0.1 0.0 - 0.2 X10*3/uL [facility] NRBC Abs Auto 0.000 0.0 - 0.012 X10*3/uL [facility] 02/14/2025 12:5 9 PM EDT 02/14/2025 12:59 PM EDT us Generic External Data Provider LAB BLOOD ORDERAB LES Final Result [facility] [address] [place], [place] [phone] * (ABNORMAL) Cologuard?? colon cancer screening (02/15/2024 5:00 AM EDT) Cologuard Result Positive( A) Negative 02/22/2024 9:51 AM EDT [facility] (CLIA #:[id number]) Comment: POSITIVE TEST RESULT. A positive Cologuard result should be followed with a colonoscopy or visual examination of the colon. The normal value (reference range) for this assay is negative. TEST DESCRIPTION: Composite algorithmic analysis of stool DNA-biomarkers with hemoglobin immunoassay. ?? Quantitative values of individual biomarkers are not reportable and are not associated with individual biomarker result reference ranges. Cologuard is intended for colorectal cancer screening of adults of either sex, 45 years or older, who are at average-risk for colorectal cancer (CRC). Cologuard has been approved for use by the U.S. FDA. The performance of Cologuard was established in a cross sectional study of average-risk adults aged 50-84. Cologuard performance in patients ages 45 to 49 years was estimated by sub-group analysis of near-age groups. Colonoscopies performed for a positive result may find as the most clinically significant lesion: colorectal cancer [4.0%], advanced adenoma (including sessile serrated polyps greater than or equal to 1cm diameter) [20%] or non- advanced adenoma [31%]; or no colorectal neoplasia [45%]. These estimates are derived from a prospective cross-sectional screening study of 10,000 individuals at average risk for colorectal cancer who were screened with both Cologuard and colonoscopy. (Sandee Villatoro. et al, N Engl J Med 2014;370(14):7647-6964.) Cologuard may produce a false negative or false positive result (no colorectal cancer or precancerous polyp present at colonoscopy follow up). A negative Cologuard test result does not guarantee the absence of CRC or advanced adenoma (pre-cancer). The current Cologuard screening interval is every 3 years. (Citizen [place] Cancer Society and [place].S. Multi-Society Task Force). Cologuard performance data in a 10,000 patient pivotal study using colonoscopy as the reference method can be accessed at the following location: [email or web address]/results. Additional description of the Cologuard test process, warnings and precautions can be found at [email or web address]. Stool specimen (specimen) 02/15/2024 5:00 AM EDT 02/16/2024 10:49 AM EDT us Regi Begolli MD LAB MOLECULAR DIAGNOSTICS ORD ERABLES Final Result [facility] (CLIA #:[id number]) [place] [address], * (ABNORMAL) Lipid Panel, Standard (01/29/2024 12:02 PM EDT) Triglycerides 82 <150 mg/dL [facility] Comment:Desirable Triglyceri de: less than 150 mg/dLBorderline High Triglyceride 150-199 mg/dLHigh Triglyceride: 200-499 mg/dLVery High Triglyceride: greater than or equal to 5OO mg/dL Cholesterol 189 <200 mg/dL [facility] Comment:Desirable Cholestero l: less than 200 mg/dLBorderline High Cholesterol: 200-239 mg/dLHigh Cholesterol: greater than 239 mg/dL LDL Cholesterol Calculated 112(H) <100 mg/dL [facility] Comment:Desirable LDL: less than 100 mg/dLNear Optimal/Above Optimal LDL: 110- 129 mg/dLBorderline High LDL: 130-159 mg/dLHigh LDL: 160-189 mg/dLVery High LDL: greater than or equal to 190 mg/dL HDL Cholesterol 61 >40 mg/dL [facility] Comment:Desirable HDL: great er than 40 mg/dL Note: This HDL assay may give artificially low results in patients with liver disease. Blood Venous blood specimen / Unknown 01/29/2024 12:02 PM EDT 01/29/2024 2:43 PM EDT us Regi Martínez MD LAB BLOOD ORDERABLES Final Re sult [facility] [address] [place] [phone] [phone] * Hm Mammography (09/02/2023 5:19 PM EST) Anatomical Region Laterality Modality Other Historical Provider HEALTH MAINTENANCE Final Result from Last 3 Months or Most Recently Relevant to Health Maintenance Insurance MEDICARE [facility] Care Teams Entry Level Recruiter Relationship Specialty Start Date End Date Regi Martínez MD [address] [place] [phone] PCP - General Family Medicine 10/19/18
--- OUTSIDE RECORDS SUMMARY | 2025-02-14 13:40 | XMS_ITS | Encounter Summary ---
Author Organization [email or web address] Address [address] [facility] [address] [place] [address] Care Team Providers Care Primary School Principal Name Role Phone Regi Martínez MD Primary Care Provider [phone] Reason for Visit * Reason Onset Date Comments Appointment Request 11/19/2023 Encounter Details Date Type Department Care Team (Late st Contact Info) Description 11/19/2023 Telephone [facility] [address] [place], [place] [phone] Regi Martínez MD [address] [place], [place] [phone] Appointment Request Social History Tobacco Use Types Packs/Day Years Used Date Smoking Tobacco: Never Assessed Comments Unknown Sex and Gender Information Value Date Recorded Sex Assigned at Female 08/18/2022 10:19 AM EDT Legal Sex Female 10:19 AM EDT Gender Identity Female 01/29/2024 8:57 AM EDT Sexual Orientation Don't know 01/29/2024 8: 57 AM EDT documented as of this encounter Miscellaneous Notes * Telephone Encounter - Jurgen Walter - 11/19/2023 2:20 PM EST Tc from patient calling to request a appt states is able to come in on 11/23 due to transportation documented in this encounter Plan of Treatment Upcoming Encounters Date Type Department Care Team (Late st Contact Info) Description 03/15/2025 11:30 AM EDT Office Visit [facility] [address] [place], [place] [phone] Regi Martínez MD [address] [place], [place] [phone] documented as of this encounter Visit Diagnoses Not on filedocumented in this encounter Care Teams Primary School Principal Relationship Specialty Start Date End Date Regi Martínez MD [address] [place] [phone] PCP - General Family Medicine 10/19/18 documented as of this encounter
--- OUTSIDE RECORDS SUMMARY | 2025-02-14 13:40 | XMS_ITS | Encounter Summary ---
Author Organization [employer] Address [address] [facility] [address] [place] [address] Care Team Providers Care Multifold Operator Name Role Phone Regi Martínez MD Primary Care Provider [phone] Reason for Visit * Reason Onset Date Comments Med Refill needs appt 07/29/2023 Encounter Details Date Type Department Care Team (Late Contact Info) Description 07/29/2023 Refill [facility] [address] [place] [address] Regi Martínez MD [address] [place], [place] [phone] Rash; Vertigo Social History Tobacco Use Types Packs/Day [...] encounter Miscellaneous Notes * Telephone Encounter - Lidia Dias [place] - 10/15/2023 3:38 PM EST Pt is due to come to see Dr Martínez for FU chronic conditions. Ok for call center to schedule next available. documented in this encounter Plan of Treatment Upcoming Encounters Date Type Department Care Team (Late st Contact Info) Description 03/15/2025 11:30 AM EDT Office Visit [facility] [address] [place], [place] [phone] Regi Martínez MD [address] [place] [address] documented as of this encounter Visit Diagnoses Diagnosis Rash Rash and other nonspecific skin eruption Vertigo Dizziness and giddiness documented in this encounter Care Teams Multifold Operator Relationship Specialty Start Date End Date Regi Martínez MD [address] [place] [address] PCP - General Family Medicine 10/19/18 documented as of this encounter
--- OUTSIDE RECORDS SUMMARY | 2025-02-14 13:40 | XMS_ITS | Encounter Summary ---
Author Organization [facility] [facility] Address [address] [facility] [address] [place] [address] Care Team Providers Care Science Faculty Member Name Role Phone Regi Martínez MD Primary Care Provider [phone] Reason for Visit * Reason Comments Med Refill Encounter Details Date Type Department Care Team (Late Contact Info) Description 12/30/2023 Refill [facility] MED & PEDS [address] [place], [place] [phone] Jean Claude Reyes MD 505 [place], [place] [phone] Social History Tobacco Use Types Packs/Day Years [...] Description 03/15/2025 11:30 AM EDT Office Visit [facility] MED & PEDS [address] [place] [address] Regi Martínez MD [address] [place], [place] [phone] documented as of this encounter Visit Diagnoses Not on filedocumented in this encounter Care Teams Science Faculty Member Relationship Specialty Start Date End Date Regi Martínez MD [address] [place], [place] [phone] PCP - General Family Medicine 10/19/18 documented as of this encounter
--- OUTSIDE RECORDS SUMMARY | 2025-02-14 13:40 | XMS_ITS | Encounter Summary ---
Author Organization [employer] Address [address] [facility] 7t [place] [address] Care Team Providers Care Weatherization Coordinator Name Role Phone Regi Martínez MD Primary Care Provider [phone] Reason for Visit * Reason Comments Med Refill Encounter Details Date Type Department Care Team ([facility] Contact Info) Description 09/21/2023 Refill [facility] MEDICINE [address] [place], [place] [phone] Regi Martínez MD [address] [place], [place] [phone] Recurrent major depressive disorder, in full remission (CMS/HCC); Gastroesophageal reflux disease without esophagitis; Mixed hyperlipidemia Social History Tobacco Use Types Packs/Day Years Used Date Smoking Tobacco: Never Assessed Comments Unknown Sex and Gender Information Value Date Recorded Sex Assigned at Female 08/18/2022 10:19 AM EDT Legal Sex Female 10:19 AM EDT Gender Identity Female 01/29/2024 8:57 AM EDT Sexual Orientation Don't know 01/29/2024 8 :57 AM EDT documented as of this encounter Plan of Treatment Upcoming Encounters Date Type Department Care Team ([facility] Contact Info) Description 03/15/2025 11:30 AM EDT Office Visit [facility] CHC MED & PEDS 505 [place] [address] Regi Martínez MD [address] [place], [place] [phone] documented as of this encounter Visit Diagnoses Diagnosis Recurrent major depressive disorder, in full remission (CMS/HCC) Gastroesophageal reflux disease without esophagitis Esophageal reflux Mixed hyperlipidemia documented in this encounter Care Teams Weatherization Coordinator Relationship Specialty Start Date End Date Regi Martínez MD [address] [place] [address] PCP - General Family Medicine 10/19/18 documented as of this encounter
--- OUTSIDE RECORDS SUMMARY | 2025-02-14 13:40 | XMS_ITS | Encounter Summary ---
Author Organization [employer] Address [address] [facility] 7t [place] [address] Care Team Providers Care Die Cutting Machine Operator Name Role Phone Regi Martínez MD Primary Care Provider [phone] Encounter Details Date Type Department Care Team (Late st Contact Info) Description 02/14/2025 Orders Only GENERIC EXTERNAL DATA DEPARTMENT Provider, Generic External Data Social History Tobacco Use Types Packs/Day Years Used Date Smoking Tobacco: Never Passive Smoke Exposure: Never Smokeless Tobacco: Never Depression Answer Date Recorded Patient Health Questionnaire-9 Score 0 12/14/2024 Patient Health Questionnaire-9 Score 0 12/14/2024 Last PHQ-9: Questionnaire Data Not on file 0 12/14/2024 Housing Stability Answer Date Recorded What is your housing situation today? I have francescahardy rajput 01/29/[address] you [...] Description 03/15/2025 11:30 AM EDT Office Visit [facility] CHC MED & PEDS 505 [place] [address] Regi Martínez MD 505 [place] [address] documented as of this encounter Procedures Procedure Name Priority Date/Time Associated Diagnosis Comments CBC WITH AUTO DIFFERENTIAL Routine 02/14/2025 12:59 PM EDT documented in this encounter Results * (ABNORMAL) CBC auto differential (02/14/2025 12:59 PM EDT) White Blood Count 6.6 4.8 - 10.8 X10*3/uL [facility] Red Blood Count 4.72 4.20 - 5.50 X10*6/uL [facility] Hemoglobin 13.6 12.0 - 16.0 g/dl [facility] Hematocrit 40.4 37.0 - 47.0 % [facility] Mean Corpuscular Volume 85.6 80.0 - 98.0 fL [facility] Mean Corpuscular Hemoglobin 28.8 27.0 - 33.0 pg [facility] Mean Corpuscular HGB Conc 33.7 31.0 - 35.0 g/dl [facility] Red Cell Distribution Width 12.7 11.0 - 16.0 % [facility] Platelet Count 257 160 - 400 X10*3/uL [facility] Mean Platelet Volume 10.5 9.4 - 12.3 fL [facility] Neutrophils Percent Auto 45.6 45 - 73 % [facility] Imm Gran Pct Auto 0.5(H) 0.0 - 0.4 % [facility] Lymphocytes Percent Auto 39.1 20 - 40 % [facility] Monocytes Percent Auto 8.8 2 - 11 % [facility] Eosinophils Percent Auto 5.2(H) 0 - 4 % [facility] Basophils Percent Auto 0.8 0 - 2 % [facility] NRBC Pct Auto 0.0 0.0 - 0.2 /100WBC [facility] Neutrophils Absolute Auto 3.0 2.0 - 8.3 x10*3/uL [facility] Imm Gran Abs Auto 0.03 0.00 - 0.03 X10*3/uL [facility] Lymphocytes Absolute Auto 2.6 1.2 - 4.9 X10*3/uL [facility] Monocytes Absolute Auto 0.6 0.1 - 1.2 X10*3/uL [facility] Eosinophils Absolute Auto 0.3 0.0 - 0.4 X10*3/uL [facility] Basophils Absolute Auto 0.1 0.0 - 0.2 X10*3/uL [facility] NRBC Abs Auto 0.000 0.0 - 0.012 X10*3/uL [facility] 02/14/2025 12:5 9 PM EDT 02/14/2025 12:59 PM EDT us Generic External Data Provider LAB BLOOD ORDERAB LES Final Result Performing Organization Address City/State/[facility] Co de Phone Number [facility] [address] [place] [address] [phone] documented in this encounter Visit Diagnoses Not on filedocumented in this encounter Additional Health Concerns Assessment Noted Time PHQ-9 Depression Total Score: 0 12/14/19 25 11:02 AM EST documented as of this encounter Care Teams Die Cutting Machine Operator Relationship Specialty Start Date End Date Regi Martínez MD [address] [place] [address] PCP - General Family Medicine 10/19/18 documented as of this encounter
--- OUTSIDE RECORDS SUMMARY | 2025-02-14 13:40 | XMS_ITS | Encounter Summary ---
Author Organization [employer] Address [address] [facility] 7t [place] [address] Care Team Providers Care Inventory Controller Name Role Phone Regi Martínez MD Primary Care Provider [phone] Encounter Details Date Type Department Care Team (Late st Contact Info) Description 04/26/2024 Orders Only [facility] CHC MED & PEDS [address] [facility] [place], [place] [phone] Regi Martínez MD 505 [facility] [place], [place] [phone] Recurrent major depressive disorder, in full remission (CMS/HCC); Gastroesophageal reflux disease without esophagitis; Mixed hyperlipidemia Social History Tobacco Use Types Packs/Day Years Used Date Smoking Tobacco: Never Passive Smoke Exposure: Never Smokeless Tobacco: Never Depression Answer Date Recorded Patient Health Questionnaire-9 Score 15 02/22/2024 Patient Health Questionnaire-9 Score 15 02/22/2024 Last PHQ-9: Questionnaire Data Not on file 0 02/22/2024 Housing Stability Answer Date Recorded What is [...] Answer Date Recorded Patient Health Questionnaire-2 Score 6 02/22/2024 Comments Unknown Sex and Gender Information Value [...] Description 03/15/2025 11:30 AM EDT Office Visit [facility] MED & PEDS 505 [place] [address] Regi Martínez MD 505 [place] [address] documented as of this encounter Visit Diagnoses Diagnosis Recurrent major depressive disorder, in full remission (CMS/HCC) Gastroesophageal reflux disease without esophagitis Esophageal reflux Mixed hyperlipidemia documented in this encounter Additional Health Concerns Assessment Noted Time PHQ-9 Depression Total Score: 15 024 9:41 AM EDT documented as of this encounter Care Teams Inventory Controller Relationship Specialty Start Date End Date Regi Martínez MD 505 [place] [address] PCP - General Family Medicine 10/19/18 documented as of this encounter
--- OUTSIDE RECORDS SUMMARY | 2025-02-14 13:40 | XMS_ITS | Encounter Summary ---
Author Organization [employer] Address [address] [facility] [address] 7t [place] [address] Care Team Providers Care Patient Safety Tech Name Role Phone Regi Martínez MD Primary Care Provider [phone] Reason for Visit * Reason Onset Date Comments Medication Question 07/14/2024 Encounter Details Date Type Department Care Team (Late st Contact Info) Description 07/14/2024 Telephone [facility] MEDICINE [address] [place], [place] [phone] Regi Martínez MD [address] [place], [place] [phone] Medication Question Social History Tobacco Use Types Packs/Day Years Used Date Smoking Tobacco: Never Passive Smoke Exposure: Never Smokeless Tobacco: Never Depression Answer Date Recorded Patient Health Questionnaire-9 Score 15 02/22/2024 Patient Health Questionnaire-9 Score 15 02/22/2024 Last PHQ-9: Questionnaire Data Not on file 0 02/22/2024 Housing Stability Answer Date Recorded What is your housing situation today? I have francesca regulo 01/29/[address] you li [...] encounter Miscellaneous Notes * Telephone Encounter - Avilacelio Dias - 07/28/2024 10:20 AM EDT Tc from pt returning call regarding message prior. * Telephone Encounter - Avilacelio Dias - 07/14/2024 3:55 PM EDT Tc from pt requesting other half of her medications to be sent to [facility] pharmcy. Pt stated pcp had her medication transferred from [facility] to [facility] pharmacy she was advised by pharmacy to contact pcp regarding remaining scripts. Please contact pt at [phone]. documented in this encounter Plan of Treatment Upcoming Encounters Date Type Department Care Team ([facility] Contact Info) Description 03/15/2025 11:30 AM EDT Office Visit [facility] MED & PEDS 505 [place] [address] Regi Martínez MD 505 [place] [address] documented as of this encounter Visit Diagnoses Diagnosis Recurrent major depressive disorder, in full remission (CMS/[facility]) Gastroesophageal reflux disease without esophagitis Esophageal reflux Mixed hyperlipidemia Rash Rash and other nonspecific skin eruption Vertigo Dizziness and giddiness documented in this encounter Additional Health Concerns Assessment Noted Time PHQ-9 Depression Total Score: 15 024 9:41 AM EDT documented as of this encounter Care Teams Patient Safety Tech Relationship Specialty Start Date End Date Regi Martínez MD [address] [place] [address] PCP - General Family Medicine 10/19/18 documented as of this encounter
--- OUTSIDE RECORDS SUMMARY | 2025-02-14 13:40 | XMS_ITS | Encounter Summary ---
Author Organization [employer] Address [address] [facility] 7t [place] [address] Care Team Providers Care Road Manager Name Role Phone Regi Martínez MD Primary Care Provider [phone] Reason for Visit * Reason Onset Date Comments Appointment Request 01/15/2024 Encounter Details Date Type Department Care Team (Late st Contact Info) Description 01/15/2024 Telephone [facility] MEDICINE 230 [place], [place] [phone] Regi Martínez MD [address] [place], [place] [phone] Appointment Request Social History Tobacco Use Types [...] encounter Miscellaneous Notes * Telephone Encounter - Adele Gottlieb - 01/15/2024 9:41 AM EDT Tc from pt requesting appt with PCP, no concerns at the moment, stated just a check up. documented in this encounter Plan of Treatment Upcoming Encounters Date Type Department Care Team (Late st Contact Info) Description 03/15/2025 11:30 AM EDT Office Visit [facility] CHC MED & PEDS 505 [place], [place] [phone] Regi Martínez MD [address] [place], [place] [phone] documented as of this encounter Visit Diagnoses Not on filedocumented in this encounter Care Teams Road Manager Relationship Specialty Start Date End Date Regi Martínez MD [address] [place] [address] PCP - General Family Medicine 10/19/18 documented as of this encounter
--- OUTSIDE RECORDS SUMMARY | 2025-02-14 13:40 | XMS_ITS | Encounter Summary ---
Author Organization [employer] Address [address] [facility] [address] 7t [place] [address] Care Team Providers Care Chlorination Operator Name Role Phone Regi Martínez MD Primary Care Provider Reason for Visit * Reason Onset Date Comments Medication Question 04/22/2024 Encounter Details Date Type Department Care Team (Late st Contact Info) Description 04/22/2024 Telephone [facility] MEDICINE 230 [place], [place] [phone] Regi Martínez MD [address] [place], [place] [phone] Medication Question Social History Tobacco Use Types [...] encounter Miscellaneous Notes * Telephone Encounter - Ursula Hayden RN - 04/25/2024 5:17 PM EDT Tc from pt calling inn regards to pcp switching pt's pharmacy from [facility] to [facility] pharmacy., pt stated certain medication was not sent and was advised by [facility] pharmacy to contact pcp for prescriptions to be sent. Medication in question: Ibuprofen lisinopril 20 MG tablet D3 Super Strength 50 MCG (2000 UT) capsule minocycline 50 MG capsule Gabapentin Flovent HFA Ventolin HFA desonide (DesOwen) 0.05 % cream hydrocortisone 2.5 % cream If any questions you can contact pt at [phone] Qued all meds except ibuprofen as not on med list * Telephone Encounter - Avila Dias - 04/22/2024 1:13 PM EDT Tc from pt calling inn regards to pcp switching pt's pharmacy from [facility] to [facility] pharmacy., pt stated certain medication was not sent and was advised by [facility] pharmacy to contact pcp for prescriptions to be sent. Medication in question: Ibuprofen lisinopril 20 MG tablet D3 Super Strength 50 MCG (2000 UT) capsule minocycline 50 MG capsule Gabapentin Flovent HFA Ventolin HFA desonide (DesOwen) 0.05 % cream hydrocortisone 2.5 % cream If any questions you can contact pt at [phone] documented in this encounter Plan of Treatment Upcoming Encounters Date Type Department Care Team (Late st Contact Info) Description 03/15/2025 11:30 AM EDT Office Visit [facility] MED & PEDS [address] [place] [address] Regi Martínez MD 505 [place] [address] documented as of this encounter Visit Diagnoses Diagnosis Hypertension, unspecified type Food insecurity Rash Rash and other nonspecific skin eruption documented in this encounter Additional Health Concerns Assessment Noted Time PHQ-9 Depression Total Score: 15 024 9:41 AM EDT documented as of this encounter Care Teams Chlorination Operator Relationship Specialty Start Date End Date Regi Martínez MD 505 [place] [address] PCP - General Family Medicine 10/19/18 documented as of this encounter
--- OUTSIDE RECORDS SUMMARY | 2025-02-14 13:40 | XMS_ITS | Encounter Summary ---
Author Organization [employer] [facility] Address [address] [facility] 7t [place] [address] Care Team Providers Care Pre Kindergarten Teacher Name Role Phone Regi Martínez MD Primary Care Provider [phone] Reason for Visit * Reason Comments Med Refill Encounter Details Date Type Department Care Team (Late st Contact Info) Description 12/30/2023 Refill [facility] MEDICINE [address] [place] [address] Regi Martínez MD 505 [place] [address] Social History Tobacco Use Types Packs/Day Years [...] Description 03/15/2025 11:30 AM EDT Office Visit [facility] CHC MED & PEDS 505 [place] [address] Regi Martínez MD 505 [place] [address] documented as of this encounter Visit Diagnoses Not on filedocumented in this encounter Care Teams Pre Kindergarten Teacher Relationship Specialty Start Date End Date Regi Martínez MD 505 [place] [address] PCP - General Family Medicine 10/19/18 documented as of this encounter
--- OUTSIDE RECORDS SUMMARY | 2025-02-14 13:40 | XMS_ITS | Encounter Summary ---
Author Organization [employer] [facility] Address [address] [facility] 7t [place] [address] Care Team Providers Care Occupational Hygienist Name Role Phone Regi Martínez MD Primary Care Provider [phone] Reason for Visit * Reason Comments Med Refill Encounter Details Date Type Department Care Team (Late st Contact Info) Description 01/01/2024 Refill [facility] MEDICINE [address] [place] [address] Regi Martínez MD [address] [place] [address] Social History Tobacco Use Types Packs/Day Years [...] Description 03/15/2025 11:30 AM EDT Office Visit [facility] CHC MED & PEDS [address] [place] [address] Regi Martínez MD [address] [place] [address] documented as of this encounter Visit Diagnoses Not on filedocumented in this encounter Care Teams Occupational Hygienist Relationship Specialty Start Date End Date Regi Martínez MD [address] [place] [address] PCP - General Family Medicine 10/19/18 documented as of this encounter
--- OUTSIDE RECORDS SUMMARY | 2025-02-14 13:40 | XMS_ITS | Encounter Summary ---
Author Organization [employer] Address [address] [facility] [address] 7t [place] [address] Care Team Providers Care Slat Basket Top Maker Name Role Phone Regi Martínez MD Primary Care Provider [phone] Reason for Visit * Reason Onset Date Comments [facility] 01/26/2024 Encounter Details Date Type Department Care Team (Late st Contact Info) Description 01/26/2024 Telephone [facility] MEDICINE [address] [place] [address] Regi Martínez MD [address] [place] [phone] [facility] Social History Tobacco Use Types Packs/Day Years Used Date Smoking Tobacco: Never Assessed Depression Answer Date Recorded Patient Health Questionnaire-9 Score 17 01/29/2024 Patient Health Questionnaire-9 Score 17 01/29/2024 Last PHQ-9: Questionnaire Data Not on file 0 01/29/2024 Housing Stability Answer Date Recorded What is [...] Answer Date Recorded Patient Health Questionnaire-2 Score 4 01/29/2024 Comments Unknown Sex and Gender Information Value Date Recorded Sex Assigned at Female 08/18/2022 10:19 AM EDT Legal Sex Female 10:19 AM EDT Gender Identity Female 01/29/2024 8:57 AM EDT Sexual Orientation Don't know 01/29/2024 8: 57 AM EDT documented as of this encounter Miscellaneous Notes * Telephone Encounter - Desirae Perkins RN - 01/28/2024 12:54 PM EDT Uber set up for tomorrows appt. * Telephone Encounter - Adele Gottlieb - 01/26/2024 2:37 PM EDT Tc from pt requesting transportation for appt on Thursday, address and phone confirmed, however is a home phone, pt doesn't have janes phone. documented in this encounter Plan of Treatment Upcoming Encounters Date Type Department Care Team (Late st Contact Info) Description 03/15/2025 11:30 AM EDT Office Visit [facility] CHC MED & PEDS 505 [place] [address] Regi Martínez MD 505 [place] [address] documented as of this encounter Visit Diagnoses Not on filedocumented in this encounter Care Teams Slat Basket Top Maker Relationship Specialty Start Date End Date Regi Martínez MD 505 [place] [address] PCP - General Family Medicine 10/19/18 documented as of this encounter
--- OUTSIDE RECORDS SUMMARY | 2025-02-14 13:40 | XMS_ITS | Encounter Summary ---
Author Organization [email or web address] Address [address] [facility] 7t [place] [address] Care Team Providers Care Program Eligibility Specialist Name Role Phone Regi Martínez MD Primary Care Provider [phone] Reason for Visit * Reason Comments Med Refill Encounter Details Date Type Department Care Team (Late Contact Info) Description 12/30/2023 Refill [facility] MEDICINE [address] [place], [place] [phone] Regi Martínez MD 505 [place], [place] [phone] Recurrent major depressive disorder, in full remission [...] Description 03/15/2025 11:30 AM EDT Office Visit [facility] CHC MED & PEDS 505 [place] [address] Regi Martínez MD [address] [place], [place] [phone] documented as of this encounter Visit Diagnoses Diagnosis Recurrent major depressive disorder, in full remission (CMS/HCC) Gastroesophageal reflux disease without esophagitis Esophageal reflux Mixed hyperlipidemia Vertigo Dizziness and giddiness documented in this encounter Care Teams Program Eligibility Specialist Relationship Specialty Start Date End Date Regi Martínez MD [address] [place] [address] PCP - General Family Medicine 10/19/18 documented as of this encounter
--- OUTSIDE RECORDS SUMMARY | 2025-02-14 13:40 | XMS_ITS | Encounter Summary ---
Author Organization [email or web address] Address [address] 7[address] [place] [address] Care Team Providers Care Stock Chaser Name Role Phone Regi Martínez MD Primary Care Provider [phone] Encounter Details Date Type Department Care Team (Late st Contact Info) Description 10/09/2024 Orders Only [facility] MEDICINE 230 [place] [address] Provider, MD Noe Social History Tobacco Use Types Packs/Day Years Used Date Smoking Tobacco: Never Passive Smoke Exposure: Never Smokeless Tobacco: Never Depression Answer Date Recorded Patient Health Questionnaire-9 Score 15 02/22/2024 Patient Health Questionnaire-9 Score 15 02/22/2024 Last PHQ-9: Questionnaire Data Not on file 0 02/22/2024 Housing Stability Answer Date Recorded What is your housing situation today? I have francesca sing 01/29/[address] you li [...] Description 03/15/2025 11:30 AM EDT Office Visit [facility] MED & PEDS [address] [place] [address] Regi Martínez MD 505 [place] [address] documented as of this encounter Procedures Procedure Name Priority Date/Time Associated Diagnosis Comments HM MAMMOGRAPHY Routine 09/02/2023 5:19 PM EST documented in this encounter Results * Hm Mammography (09/02/2023 5:19 PM EST) Anatomical Region Laterality Modality Other us Historical Provider HEALTH MAINTENANCE Final Result documented in this encounter Visit Diagnoses Not on filedocumented in this encounter Additional Health Concerns Assessment Noted Time PHQ-9 Depression Total Score: 15 024 9:41 AM EDT documented as of this encounter Care Teams Stock Chaser Relationship Specialty Start Date End Date Regi Martínez MD 505 [place] [address] PCP - General Family Medicine 10/19/18 documented as of this encounter
--- OUTSIDE RECORDS SUMMARY | 2025-02-14 13:40 | XMS_ITS | Encounter Summary ---
Author Organization [employer] [facility] Address [address] [facility] 7 [place] [address] Care Team Providers Care Director Of In Service Education Name Role Phone Regi Martínez MD Primary Care Provider [phone] Reason for Visit * Reason Comments Med Refill Encounter Details Date Type Department Care Team (Late Contact Info) Description 09/17/2023 Refill [facility] MED & PEDS 505 [place] [address] Regi Martínez MD [address] [place], [place] [phone] Social History Tobacco Use Types Packs/Day Years [...] Encounters Date Type Department Care Team (Late Contact Info) Description 03/15/2025 11:30 AM EDT Office Visit [facility] MED & PEDS 505 [place] [address] Regi Martínez MD 505 [place] [address] documented as of this encounter Visit Diagnoses Not on filedocumented in this encounter Care Teams Director Of In Service Education Relationship Specialty Start Date End Date Regi Martínez MD [address] [place], [place] [phone] PCP - General Family Medicine 10/19/18 documented as of this encounter
--- OUTSIDE RECORDS SUMMARY | 2025-02-14 13:40 | XMS_ITS | Encounter Summary ---
Author Organization [employer] [facility] Address [address] [facility] 7 [place] [address] Care Team Providers Care Model And Dye Person Name Role Phone Regi Martínez MD Primary Care Provider [phone] Reason for Visit * Reason Comments Med Refill Encounter Details Date Type Department Care Team (Late Contact Info) Description 01/15/2024 Refill [facility] MED & PEDS 505 [place], [place] [phone] Jean Claude Reyes MD [address] [place], [place] [phone] Social History Tobacco Use Types Packs/Day Years [...] [facility] MED [facility] PEDS [address] [place] [address] Regi Martínez MD [address] [place], [place] [phone] documented as of this encounter Visit Diagnoses Not on filedocumented in this encounter Care Teams Model And Dye Person Relationship Specialty Start Date End Date Regi Martínez MD [address] [place], [place] [phone] PCP - General Family Medicine 10/19/18 documented as of this encounter
--- OUTSIDE RECORDS SUMMARY | 2025-02-14 13:40 | XMS_ITS | Encounter Summary ---
Author Organization [employer] Address [address] [facility] 7t [place] [address] Care Team Providers Care Client Support Representative Name Role Phone Regi Martínez MD Primary Care Provider [phone] Reason for Visit * Reason Comments Med Refill Encounter Details Date Type Department Care Team (Late st Contact Info) Description 03/13/2023 Refill [facility] MEDICINE 230 [place] [address] Regi Martínez MD 505 [place] [address] Social History Tobacco Use Types Packs/Day Years [...] 03/15/2025 11:30 AM EDT Office Visit [facility] CHC MED & PEDS 505 [place] [address] Regi Martínez MD 505 [place] [address] documented as of this encounter Visit Diagnoses Not on filedocumented in this encounter Care Teams Client Support Representative Relationship Specialty Start Date End Date Regi Martínez MD 505 [place] [address] PCP - General Family Medicine 10/19/18 documented as of this encounter
--- OUTSIDE RECORDS SUMMARY | 2025-02-14 13:40 | XMS_ITS | Encounter Summary ---
Author Organization [employer] Address [address] [facility] 7t [place] [address] Care Team Providers Care Buffing Turner And Counter Name Role Phone Regi Martínez MD Primary Care Provider [phone] Reason for Visit * Reason Comments Med Refill Encounter Details Date Type Department Care Team ([facility] Contact Info) Description 10/16/2023 Refill [facility] MEDICINE 230 [place], [place] [phone] Regi Martínez MD 505 [place], [place] [phone] Recurrent major depressive disorder, in full remission [...] Upcoming Encounters Date Type Department Care Team ([facility] Contact Info) Description 03/15/2025 11:30 AM EDT Office Visit [facility] CH[facility] MED & PEDS 505 [place] [address] Regi Martínez MD [address] [place], [place] [phone] documented as of this encounter Visit Diagnoses Diagnosis Recurrent major depressive disorder, in full remission (CMS/HCC) Gastroesophageal reflux disease without esophagitis Esophageal reflux Mixed hyperlipidemia documented in this encounter Care Teams Buffing Turner And Counter Relationship Specialty Start Date End Date Regi Martínez MD [address] [place] [address] PCP - General Family Medicine 10/19/18 documented as of this encounter
--- OUTSIDE RECORDS SUMMARY | 2025-02-14 13:40 | XMS_ITS | Encounter Summary ---
Author Organization [employer] Address [address] [facility] 7t [place] [address] Care Team Providers Care Small Animal Veterinarian Name Role Phone Regi Martínez MD Primary Care Provider [phone] Reason for Visit * Reason Comments Med Refill Encounter Details Date Type Department Care Team ([facility] Contact Info) Description 12/30/[address] [facility] MEDICINE 230 [place], [place] [phone] Regi Martínez MD 505 [place], [place] [phone] Recurrent major depressive disorder, in full remission (CMS/HCC); Gastroesophageal reflux disease without esophagitis; Mixed hyperlipidemia; Rash Social History Tobacco Use Types Packs/Day Years [...] Description 03/15/2025 11:30 AM EDT Office Visit [facility] CHC MED & PEDS 505 [place] [address] Regi Martínez MD [address] [place], [place] [phone] documented as of this encounter Visit Diagnoses Diagnosis Recurrent major depressive disorder, in full remission (CMS/HCC) Gastroesophageal reflux disease without esophagitis Esophageal reflux Mixed hyperlipidemia Rash Rash and other nonspecific skin eruption documented in this encounter Care Teams Small Animal Veterinarian Relationship Specialty Start Date End Date Regi Martínez MD [address] [place] [address] PCP - General Family Medicine 10/19/18 documented as of this encounter
--- OUTSIDE RECORDS SUMMARY | 2025-02-14 13:40 | XMS_ITS | Clinical Summary ---
Author Organization [facility] Address [address] [place] [address] Care Team Providers Care Pastry Sous Chef Name Role Phone Unavailable Primary Care Provider Unavailabl e Social History Tobacco Use Types Packs/Day Years Used Date Smoking Tobacco: Never Assessed Comments Unknown Sex and Gender Information Value Date Recorded Sex Assigned at Not on file Legal Sex Female 7:47 AM EST Gender Identity Not on file Sexual Orientation Not on file Plan of Treatment Health Maintenance Due Date Last Done Comments Breast Cancer Screening 1955 DTaP,Tdap,and Td Vaccines (1 - Tdap) 1972 Pneumococcal Vaccine: 50+ Ye ars (1 of 1 - PCV) 2003 Zoster Vaccines (1 of 2) 2003 COVID-19 Vaccine ( - 2023-2 5 season) 2024 Influenza Vaccine (Season Ended) 2025 RSV Immunization Adult Patie nts (1 - 1-dose 75+ series) 2028 HIB Vaccines Aged Out No longer eligi [...] on patient's age to complete this topic MMR Vaccines Aged Out No longer eligi ble based on patient's age to complete this topic Meningococcal ACWY Vaccine Aged Out N o longer eligible based on patient's age to complete this topic Meningococcal B Vaccine Aged Out No l onger eligible based on patient's age to complete this topic RSV Immunization Patients Un pedro 20 months Aged Out No longer eligible b ased on patient's age to complete this topic Varicella Vaccines Aged Out No longer eligible based on patient's age to complete this topic
== END 2025-02-14 12:30 | disposition home or self-care (01) ==
LOC: HO.HGI 11:30
PROVIDERS: PCP Pediatrics; Visit Provider Nurse Practitioner
DX: Z01.818 Encounter for other preprocedural examination (principal); Z12.11 Encounter for screening for malignant neoplasm of colon; R19.5 Other fecal abnormalities; K21.9 Gastro-esophageal reflux disease without esophagitis
CPT/HCPCS: 99024

== ENCOUNTER 2025-02-14 11:30 | Outpatient (REF) | payer MEDICARE, MEDICAID, SELFPAY ==
[2025-02-14 13:00] LABS: MANUAL DIFF FLAG NO
[2025-02-14 13:33] LABS: Basophils Absolute Auto 0.1 X10*3/uL (0.0-0.2); Basophils Percent Auto 0.8 % (0-2); Eosinophils Absolute Auto 0.3 X10*3/uL (0.0-0.4); Eosinophils Percent Auto 5.2 % (0-4); Hematocrit 40.4 % (37.0-47.0); Hemoglobin 13.6 g/dl (12.0-16.0); Imm Gran Abs Auto 0.03 X10*3/uL (0.00-0.03); Imm Gran Pct Auto 0.5 % (0.0-0.4); Lymphocytes Absolute Auto 2.6 X10*3/uL (1.2-4.9); Lymphocytes Percent Auto 39.1 % (20-40); Mean Corpuscular HGB Conc 33.7 g/dl (31.0-35.0); Mean Corpuscular Hemoglobin 28.8 pg (27.0-33.0); Mean Corpuscular Volume 85.6 fL (80.0-98.0); Mean Platelet Volume 10.5 fL (9.4-12.3); Monocytes Absolute Auto 0.6 X10*3/uL (0.1-1.2); Monocytes Percent Auto 8.8 % (2-11); Neutrophils Percent Auto 45.6 % (45-73); Platelet Count 257 X10*3/uL (160-400); Red Blood Count 4.72 X10*6/uL (4.20-5.50); Red Cell Distribution Width 12.7 % (11.0-16.0); White Blood Count 6.6 X10*3/uL (4.8-10.8)
[2025-02-14 14:12] LABS: Alanine Aminotransferase 19 U/L (0-31); Albumin Level 4.2 g/dL (3.5-5.0); Alkaline Phosphatase 81 U/L (39-117); Anion Gap 13 (12-20); Aspartate Amino Transferase 30 U/L (5-31); Bilirubin Total 0.4 mg/dL (0.0-1.0); Blood Urea Nitrogen 19 mg/dL (9-16); Calcium 9.4 mg/dL (8.4-10.2); Carbon Dioxide 27 mmol/L (22-29); Chloride 108 mmol/L (96-108); Estimated Glomerular Filt Rate > 60; Glucose Random 95 mg/dL (60-115); Potassium 4.3 mmol/L (3.3-5.1); Sodium 144 mmol/L (135-145); Total Protein 7.4 g/dL (6.5-8.0)
--- OUTSIDE RECORDS SUMMARY | 2025-02-14 14:29 | XMS_ITS | Encounter Summary ---
Author Organization [employer] Address 75 [facility] 7t [place] [address] Care Team Providers Care Vessel Engineer Name Role Phone Regi Martínez MD Primary Care Provider [phone] Reason for Visit * Reason Comments Med Refill Encounter Details Date Type Department Care Team ([facility] Contact Info) Description 09/21/2023 Refill [facility] MEDICINE 230 [place], [place] [phone] Regi Martínez MD 505 [place], [place] [phone] Recurrent major depressive disorder, in full remission [...] Encounters Date Type Department Care Team ([facility] Contact Info) Description 03/15/2025 11:30 AM EDT Office Visit [facility] CHC MED & PEDS 505 [place] [address] Regi Martínez MD 505 [place], [place] [phone] documented as of this encounter Visit Diagnoses Diagnosis Recurrent major depressive disorder, in full remission (CMS/HCC) Gastroesophageal reflux disease without esophagitis Esophageal reflux Mixed hyperlipidemia documented in this encounter Care Teams Vessel Engineer Relationship Specialty Start Date End Date Regi Martínez MD [address] [place] [address] PCP - General Family Medicine 10/19/18 documented as of this encounter
--- OUTSIDE RECORDS SUMMARY | 2025-02-14 14:29 | XMS_ITS | Encounter Summary ---
Author Organization [employer] Address [address] [facility] 7t [place] [address] Care Team Providers Care Wool Hat Sanding Machine Operator Name Role Phone Regi Martínez MD Primary Care Provider [phone] Encounter Details Date Type Department Care Team (Late st Contact Info) Description 04/26/2024 Orders Only [facility] CHC MED & PEDS 505 [facility] [place], [place] [phone] Regi Martínez MD [address] [facility] [place], [place] [phone] Recurrent major depressive disorder, in full remission [...] Description 03/15/2025 11:30 AM EDT Office Visit [facility] MED [facility] PEDS 505 [place] [address] Regi Martínez MD 505 [place] [address] documented as of this encounter Visit Diagnoses Diagnosis Recurrent major depressive disorder, in full remission (CMS/HCC) Gastroesophageal reflux disease without esophagitis Esophageal reflux Mixed hyperlipidemia documented in this encounter Additional Health Concerns Assessment Noted Time PHQ-9 Depression Total Score: 15 024 9:41 AM EDT documented as of this encounter Care Teams Wool Hat Sanding Machine Operator Relationship Specialty Start Date End Date Regi Martínez MD 505 [place] [address] PCP - General Family Medicine 10/19/18 documented as of this encounter
--- OUTSIDE RECORDS SUMMARY | 2025-02-14 14:29 | XMS_ITS | Encounter Summary ---
Author Organization [employer] [facility] Address [address] [facility] 7t [place] [address] Care Team Providers Care Trench Shovel Operator Name Role Phone Regi Martínez MD Primary Care Provider [phone] Reason for Visit * Reason Comments Med Refill Encounter Details Date Type Department Care Team (Late st Contact Info) Description 12/30/2023 Refill [facility]INE 230 [place] [address] Regi Martínez MD 505 [place] [address] Social History Tobacco Use Types Packs/Day Years [...] 03/15/2025 11:30 AM EDT Office Visit [facility] MED & PEDS 505 [place] [address] Regi Martínez MD 505 [place] [address] documented as of this encounter Visit Diagnoses Not on filedocumented in this encounter Care Teams Trench Shovel Operator Relationship Specialty Start Date End Date Regi Martínez MD 505 [place] [address] PCP - General Family Medicine 10/19/18 documented as of this encounter
--- OUTSIDE RECORDS SUMMARY | 2025-02-14 14:29 | XMS_ITS | Encounter Summary ---
Author Organization [employer] Address [address] [facility] [address] 7t [place] [address] Care Team Providers Care Fancy Needleworker Name Role Phone Regi Martínez MD Primary Care Provider [phone] Reason for Visit * Reason Onset Date Comments Medication Question 04/22/2024 Encounter Details Date Type Department Care Team (Late st Contact Info) Description 04/22/2024 Telephone [facility] MEDICINE 230 [place], [place] [phone] Regi Martínez MD [address] [place], [place] [phone] Medication Question Social History Tobacco Use Types [...] regards to pcp switching pt's pharmacy from [facility] to [facility] pharmacy., pt stated certain medication was not sent and was advised by [facility] pharmacy to contact pcp for prescriptions to be sent. Medication in question: Ibuprofen lisinopril 20 MG tablet D3 Super Strength 50 MCG (2000 UT) capsule minocycline 50 MG capsule Gabapentin Flovent HFA Ventolin HFA desonide (DesOwen) 0.05 % cream hydrocortisone 2.5 % cream If any questions you can contact pt at [phone] Qued all meds except ibuprofen as not on med list * Telephone Encounter - Avila Dias - 04/22/2024 1:13 PM EDT Tc from pt calling inn regards to pcp switching pt's pharmacy from [facility] to [facility] pharmacy., pt stated certain medication was not sent and was advised by [facility] pharmacy to contact pcp for prescriptions to be sent. Medication in question: Ibuprofen lisinopril 20 MG tablet D3 Super Strength 50 MCG (2000 UT) capsule minocycline 50 MG capsule Gabapentin Flovent HFA Ventolin HFA desonide (DesOwen) 0.05 % cream hydrocortisone 2.5 % cream If any questions you can contact pt at [phone] documented in this encounter Plan of Treatment Upcoming Encounters Date Type Department Care Team (Late st Contact Info) Description 03/15/2025 11:30 AM EDT Office Visit [facility] MED & PEDS 505 [place] [address] Regi Martínez MD 505 [place] [address] documented as of this encounter Visit Diagnoses Diagnosis Hypertension, unspecified type Food insecurity Rash Rash and other nonspecific skin eruption documented in this encounter Additional Health Concerns Assessment Noted Time PHQ-9 Depression Total Score: 15 024 9:41 AM EDT documented as of this encounter Care Teams Fancy Needleworker Relationship Specialty Start Date End Date Regi Martínez MD 505 [place] [address] PCP - General Family Medicine 10/19/18 documented as of this encounter
--- OUTSIDE RECORDS SUMMARY | 2025-02-14 14:29 | XMS_ITS | Encounter Summary ---
Author Organization [facility] Address [address] [facility] 7 [place] [address] Care Team Providers Care Relief Man Name Role Phone Regi Martínez MD Primary Care Provider [phone] Reason for Visit * Reason Comments Med Refill Encounter Details Date Type Department Care Team (Late Contact Info) Description 09/17/2023 Refill [facility] MED & PEDS 505 [place] [address] Regi Martínez MD 505 [place], [place] [phone] Social History Tobacco Use Types Packs/Day Years [...] 03/15/2025 11:30 AM EDT Office Visit [facility] CHC MED & PEDS 505 [place] [address] Regi Martínez MD 505 [place] [address] documented as of this encounter Visit Diagnoses Not on filedocumented in this encounter Care Teams Relief Man Relationship Specialty Start Date End Date Regi Martínez MD [address] [place], [place] [phone] PCP - General Family Medicine 10/19/18 documented as of this encounter
--- OUTSIDE RECORDS SUMMARY | 2025-02-14 14:29 | XMS_ITS | Encounter Summary ---
Author Organization [employer] Address [address] [facility] 7t [place] [address] Care Team Providers Care Aoc Plans Intelligence Officer Chief Name Role Phone Regi Martínez MD Primary Care Provider [phone] Reason for Visit * Reason Comments Med Refill Encounter Details Date Type Department Care Team (Late st Contact Info) Description 03/13/2023 Refill [facility] MEDICINE 230 [place] [address] Regi Martínez MD 505 [place] [address] Social History Tobacco Use Types Packs/Day Years [...] Description 03/15/2025 11:30 AM EDT Office Visit [facility] CHC MED & PEDS 505 [place] [address] Regi Martínez MD 505 [place] [address] documented as of this encounter Visit Diagnoses Not on filedocumented in this encounter Care Teams Aoc Plans Intelligence Officer Chief Relationship Specialty Start Date End Date Regi Martínez MD 505 [place] [address] PCP - General Family Medicine 10/19/18 documented as of this encounter
--- OUTSIDE RECORDS SUMMARY | 2025-02-14 14:29 | XMS_ITS | Encounter Summary ---
Author Organization [employer] Address [address] [facility] 7t [place] [address] Care Team Providers Care Office Services Assistant Name Role Phone Regi Martínez MD Primary Care Provider [phone] Reason for Visit * Reason Comments Med Refill Encounter Details Date Type Department Care Team ([facility] Contact Info) Description 10/16/2023 Refill [facility] 230 [place], [place] [phone] Regi Martínez MD 505 [place], [place] [phone] Recurrent major depressive disorder, in full remission [...] Upcoming Encounters Date Type Department Care Team ([facility] Contact Info) Description 03/15/2025 11:30 AM EDT Office Visit [facility] MED & PEDS 505 [place] [address] Regi Martínez MD 505 [place], [place] [phone] documented as of this encounter Visit Diagnoses Diagnosis Recurrent major depressive disorder, in full remission (CMS/HCC) Gastroesophageal reflux disease without esophagitis Esophageal reflux Mixed hyperlipidemia documented in this encounter Care Teams Office Services Assistant Relationship Specialty Start Date End Date Regi Martínez MD [address] [place] [address] PCP - General Family Medicine 10/19/18 documented as of this encounter
--- OUTSIDE RECORDS SUMMARY | 2025-02-14 14:29 | XMS_ITS | Encounter Summary ---
Author Organization [employer] Address [address] [facility] [address] 7t [place] [address] Care Team Providers Care Bonded Structures Repairer Name Role Phone Regi Martínez MD Primary Care Provider [phone] Reason for Visit * Reason Onset Date Comments Medication Question 07/14/2024 Encounter Details Date Type Department Care Team (Late st Contact Info) Description 07/14/2024 Telephone [facility] MEDICINE 230 [place], [place] [phone] Regi Martínez MD [address] [place], [place] [phone] Medication Question Social History Tobacco Use Types [...] of her medications to be sent to [facility] pharmcy. Pt stated pcp had her medication transferred from [facility] to [facility] pharmacy she was advised by pharmacy to contact pcp regarding remaining scripts. Please contact pt at [phone]. documented in this encounter Plan of Treatment Upcoming Encounters Date Type Department Care Team ([facility] Contact Info) Description 03/15/2025 11:30 AM EDT Office Visit [facility] MED & PEDS 505 [place] [address] Regi Martínez MD 505 [place] [address] documented as of this encounter Visit Diagnoses Diagnosis Recurrent major depressive disorder, in full remission (CMS/[facility]) Gastroesophageal reflux disease without esophagitis Esophageal reflux Mixed hyperlipidemia Rash Rash and other nonspecific skin eruption Vertigo Dizziness and giddiness documented in this encounter Additional Health Concerns Assessment Noted Time PHQ-9 Depression Total Score: 15 024 9:41 AM EDT documented as of this encounter Care Teams Bonded Structures Repairer Relationship Specialty Start Date End Date Regi Martínez MD [address] [place] [address] PCP - General Family Medicine 10/19/18 documented as of this encounter
--- OUTSIDE RECORDS SUMMARY | 2025-02-14 14:29 | XMS_ITS | Encounter Summary ---
Author Organization [employer] Address 75 [facility] 7t [place] [address] Care Team Providers Care Budget Assistant Name Role Phone Regi Martínez MD Primary Care Provider [phone] Reason for Visit * Reason Onset Date Comments Med Refill needs appt 07/29/2023 Encounter Details Date Type Department Care Team (Late Contact Info) Description 07/29/2023 Refill [facility] MEDICINE 230 [place] [address] Regi Martínez MD 505 [place], [place] [phone] Rash; Vertigo Social History Tobacco Use Types [...] Office Visit [facility] CHC MED & PEDS 505 [place], [place] [phone] Regi Martínez MD 505 [place] [address] documented as of this encounter Visit Diagnoses Diagnosis Rash Rash and other nonspecific skin eruption Vertigo Dizziness and giddiness documented in this encounter Care Teams Budget Assistant Relationship Specialty Start Date End Date Regi Martínez MD 505 [place] [address] PCP - General Family Medicine 10/19/18 documented as of this encounter
--- OUTSIDE RECORDS SUMMARY | 2025-02-14 14:29 | XMS_ITS | Encounter Summary ---
Author Organization [employer] Address [address] [facility] [address] 7t [place] [address] Care Team Providers Care Manager Business Intelligence Name Role Phone Regi Martínez MD Primary Care Provider [phone] Encounter Details Date Type Department Care Team (Late st Contact Info) Description 10/09/2024 Orders Only [facility] MEDICINE 230 [place] [address] Provider, MD Noe Social History Tobacco Use [...] 11:30 AM EDT Office Visit [facility] MED & PEDS 505 [place] [address] Regi Martínez MD 505 [place] [address] documented as of this encounter Procedures Procedure [...] documented as of this encounter Care Teams Manager Business Intelligence Relationship Specialty Start Date End Date Regi Martínez MD 505 [place] [address] PCP - General Family Medicine 10/19/18 documented as of this encounter
--- OUTSIDE RECORDS SUMMARY | 2025-02-14 14:29 | XMS_ITS | Encounter Summary ---
Author Organization [employer] [facility] [facility] [employer] Address [address] [facility] [address] 7[address] [place] [address] Care Team Providers Care Studio Designer Name Role Phone Regi Martínez MD Primary Care Provider [phone] Reason for Visit * Reason Onset Date Comments [facility] 01/26/2024 Encounter Details Date Type Department Care Team (Late st Contact Info) Description 01/26/2024 Telephone [facility] MEDICINE 230 [place] [address] Regi Martínez MD [address] [place] [phone] [facility] Social History Tobacco Use [...] 11:30 AM EDT Office Visit [facility] MED & PEDS 505 [place] [address] Regi Martínez MD 505 [place] [address] documented as of this encounter Visit Diagnoses Not on filedocumented in this encounter Care Teams Studio Designer Relationship Specialty Start Date End Date Regi Martínez MD 505 [place] [address] PCP - General Family Medicine 10/19/18 documented as of this encounter
--- OUTSIDE RECORDS SUMMARY | 2025-02-14 14:29 | XMS_ITS | Encounter Summary ---
Author Organization [employer] [facility] Address 75 [facility] 7 [place] [address] Care Team Providers Care Electronic Device Repairer Name Role Phone Regi Martínez MD Primary Care Provider [phone] Reason for Visit * Reason Comments Med Refill Encounter Details Date Type Department Care Team (Late Contact Info) Description 01/15/2024 Refill [facility] MED & PEDS 505 [place], [place] [phone] Jean Claude Reyes MD 505 [place], [place] [phone] Social History Tobacco Use Types Packs/Day Years [...] Description 03/15/2025 11:30 AM EDT Office Visit [facility] CHC MED & PEDS 505 [place] [address] Regi Martínez MD 505 [place], [place] [phone] documented as of this encounter Visit Diagnoses Not on filedocumented in this encounter Care Teams Electronic Device Repairer Relationship Specialty Start Date End Date Regi Martínez MD 505 [place], [place] [phone] PCP - General Family Medicine 10/19/18 documented as of this encounter
--- OUTSIDE RECORDS SUMMARY | 2025-02-14 14:29 | XMS_ITS | Clinical Summary ---
Author Organization [employer] Address [address] [facility] 7t [place] [address] Care Team Providers Care Prep Manager Name Role Phone Regi Martínez MD Primary Care Provider [phone] Allergies Active Allergy Reactions Criticality Noted Date [...] months ago during a routine surgery at [facility]. This event has led to an increase [...] months ago during a routine surgery at [facility]. This event has led to an increase [...] intervention , Patient to reach out to [facility] team as needed, Comply with medication , Patient to engage in OP therapy , and Patient to reach out to [facility] as needed Hypertension 2012 Mixed hyperlipidemia 2012 Chronic obstructive lung disease 2012 Overweight 2012 Malignant neoplasm of breast 05/08/2010 Encounters Date Type Department Care Team Description 02/14/2025 Orders Only GENERIC EXTERNAL DATA DEPARTMENT Provider, Generic External Data 02/07/2025 Refill [facility] MED & PEDS [address] [place] [address] Regi Martínez MD Recurrent major depressive disorder, in full remission (CMS/HCC); Gastroesophageal reflux disease without esophagitis; Mixed hyperlipidemia 02/04/2025 Refill [facility] MED & PEDS [address] [place] [address] Regi Martínez MD Recurrent major depressive disorder, in full remission (CMS/HCC); Gastroesophageal reflux disease without esophagitis; Mixed hyperlipidemia 12/30/2024 Population Health Risk Score [facility] () Department [address] [place] [address] [phone] Provider, Population Health Generic 12/14/2024 11:30 AM EST Office Visit [facility] MED & PEDS [address] [place] [address] Regi Martínez MD Overweight (Primary Dx); Dietary counseling; Exercise counseling; 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); Grief; Hypertension, unspecified type; Primary osteoarthritis of both knees 12/14/2024 Travel 11/25/2024 Telephone [facility] MEDICINE [address] [place], [place] [phone] Regi Martínez MD 11/16/2024 Travel from Last [...] Upcoming Encounters Date Type Department Care Team ([facility] st Contact Info) Description 03/15/2025 11:30 AM EDT Office Visit [facility] MED & PEDS [address] [place] [address] Regi Martínez MD [address] [place] [address] Health Maintenance Due Date Last Done Comments [...] Procedure Name Priority Date/Time Associated Diagnosis Comments COMPREHENSIVE METABOLIC PANEL Routine 02/14/2025 12:59 PM EDT CBC WITH AUTO DIFFERENTIAL Routine 02/14/2025 12:59 [...] Blood Count 6.6 4.8 - 10.8 X10*3/uL [facility] Red Blood Count 4.72 4.20 - 5.50 X10*6/uL [facility] Hemoglobin 13.6 12.0 - 16.0 g/dl [facility] Hematocrit 40.4 37.0 - 47.0 % [facility] Mean Corpuscular Volume 85.6 80.0 - 98.0 fL [facility] Mean Corpuscular Hemoglobin 28.8 27.0 - 33.0 pg [facility] Mean Corpuscular HGB Conc 33.7 31.0 - 35.0 g/dl [facility] Red Cell Distribution Width 12.7 11.0 - 16.0 % [facility] Platelet Count 257 160 - 400 X10*3/uL [facility] Mean Platelet Volume 10.5 9.4 - 12.3 fL [facility] Neutrophils Percent Auto 45.6 45 - 73 % [facility] Imm Gran Pct Auto 0.5(H) 0.0 - 0.4 % [facility] Lymphocytes Percent Auto 39.1 20 - 40 % [facility] Monocytes Percent Auto 8.8 2 - 11 % [facility] Eosinophils Percent Auto 5.2(H) 0 - 4 % [facility] Basophils Percent Auto 0.8 0 - 2 % [facility] NRBC Pct Auto 0.0 0.0 - 0.2 /100WBC [facility] Neutrophils Absolute Auto 3.0 2.0 - 8.3 x10*3/uL [facility] Imm Gran Abs Auto 0.03 0.00 - 0.03 X10*3/uL [facility] Lymphocytes Absolute Auto 2.6 1.2 - 4.9 X10*3/uL [facility] Monocytes Absolute Auto 0.6 0.1 - 1.2 X10*3/uL [facility] Eosinophils Absolute Auto 0.3 0.0 - 0.4 X10*3/uL [facility] Basophils Absolute Auto 0.1 0.0 - 0.2 X10*3/uL [facility] NRBC Abs Auto 0.000 0.0 - 0.012 X10*3/uL [facility] 02/14/2025 12:5 9 PM EDT 02/14/2025 12:59 PM EDT us Generic External Data Provider LAB BLOOD ORDERAB LES Final Result [facility] [address] [place] [address] [phone] * (ABNORMAL) Comprehensive Metabolic Panel (02/14/2025 12:59 PM EDT) Sodium 144 135 - 145 mmol/L [facility] Potassium 4.3 3.3 - 5.1 mmol/L [facility] Chloride 108 96 - 108 mmol/L [facility] Carbon Dioxide 27 22 - 29 mmol/L [facility] Anion Gap 13 12 - 20 [facility] Urea Nitrogen (BUN) 19(H) 9 - 16 mg/dL [facility] Creatinine, Serum 0.91 0.5 - 1.4 mg/dL [facility] Estimated Glomerular Filt Rate >60 [facility] Comment:Chronic Kidney Disea se: Estimated GFR < 60 mL/min/[id number] Kidney Disease: Estimated GFR < 15 mL/min/1.73m2 Glucose 95 60 - 115 mg/dL [facility] Calcium 9.4 8.4 - 10.2 mg/dL [facility] Bilirubin, Total 0.4 0.0 - 1.0 mg/dL [facility] Aspartate Amino Transferase 30 5 - 31 U/L [facility] Alanine Aminotransferase 19 0 - 31 U/L [facility] Total Protein 7.4 6.5 - 8.0 g/dL [facility] Albumin Level 4.2 3.5 - 5.0 g/dL [facility] Alkaline Phosphatase 81 39 - 117 U/L [facility] 02/14/2025 12:5 9 PM EDT 02/14/2025 12:59 PM EDT us Generic External Data Provider LAB BLOOD ORDERAB LES Final Result [facility] [address] [place] [address] [phone] * (ABNORMAL) Cologuard?? colon cancer screening (02/15/2024 5:00 AM EDT) Cologuard Result Positive( A) Negative 02/22/2024 9:51 AM EDT [employer] (CLIA #:[id number]) Comment: POSITIVE TEST RESULT. A positive Cologuard [...] screened with both Cologuard and colonoscopy. (Sandee Plaza al, N Engl J Med 2014;370(14):4088-9170.) Cologuard may produce a false negative or false positive result (no colorectal cancer or precancerous polyp present at colonoscopy follow up). A negative Cologuard test result does not guarantee the absence of CRC or advanced adenoma (pre-cancer). The current Cologuard screening interval is every 3 years. ([place] [employer] Society and U.S. Multi-Society Task Force). Cologuard performance data in a 10,000 patient pivotal study using colonoscopy as the reference method can be accessed at the following location: www.[employer]/results. Additional description of the Cologuard test process, warnings and precautions can be found at www.[employer]. Stool specimen (specimen) 02/15/2024 5:00 AM EDT 02/16/2024 10:49 AM EDT us Regi Martínez MD LAB MOLECULAR DIAGNOSTICS ORD ERABLES Final Result [facility] (CLIA #:[id number]) [place] [address], [place] [phone] * (ABNORMAL) Lipid Panel, Standard (01/29/2024 12:02 PM EDT) Triglycerides 82 <150 mg/dL [facility] Comment:Desirable Triglyceri de: less than 150 mg/dLBorderline High Triglyceride 150-199 mg/dLHigh Triglyceride: 200-499 mg/dLVery High Triglyceride: greater than or equal to 5OO mg/dL Cholesterol 189 <200 mg/dL [facility] Comment:Desirable Cholestero l: less than 200 mg/dLBorderline High Cholesterol: 200-239 mg/dLHigh Cholesterol: greater than 239 mg/dL LDL Cholesterol Calculated 112(H) <100 mg/dL [facility] Comment:Desirable LDL: less than 100 mg/dLNear Optimal/Above Optimal LDL: 110- 129 mg/dLBorderline High LDL: 130-159 mg/dLHigh LDL: 160-189 mg/dLVery High LDL: greater than or equal to 190 mg/dL HDL Cholesterol 61 >40 mg/dL [facility] Comment:Desirable HDL: great er than 40 mg/dL Note: This HDL assay may give artificially low results in patients with liver disease. Blood Venous blood specimen / Unknown 01/29/2024 12:02 PM EDT 01/29/2024 2:43 PM EDT Regi Martínez MD LAB BLOOD ORDERABLES Final Re sult [facility] [address] [place] [address] [phone] * Hm Mammography (09/02/2023 5:19 PM EST) Anatomical Region Laterality Modality Other Historical Provider HEALTH MAINTENANCE Final Result from Last 3 Months or Most Recently Relevant to Health Maintenance Insurance MEDICARE Member Subscriber Plan / Payer (Ef fective 2024-Present) Name:Ekaterina Nuñez Member ID:[id number] Relation to Subscriber:Self Name:Ekaterina Nuñez Subscriber ID:[id number] Payer ID:STATE Group ID:Not on file Type:Medicare Address: [facility].[address] [address] [facility] Care Teams Prep Manager Relationship Specialty Start Date End Date Regi Martínez MD [address] [place] [address] PCP - General Family Medicine 10/19/18
--- OUTSIDE RECORDS SUMMARY | 2025-02-14 14:29 | XMS_ITS | Encounter Summary ---
Author Organization [employer] [facility] Address [address] [facility] 7t [place] [address] Care Team Providers Care Joint Machine Operator Name Role Phone Regi Martínez MD Primary Care Provider [phone] Reason for Visit * Reason Comments Med Refill Encounter Details Date Type Department Care Team (Late st Contact Info) Description 01/01/2024 Refill [facility] MEDICINE [address] [place] [address] Regi Martínez MD [address] [place] [address] Social History Tobacco Use Types Packs/Day Years [...] Description 03/15/2025 11:30 AM EDT Office Visit [facility] CHC MED & PEDS [address] [place] [address] Regi Martínez MD [address] [place] [address] documented as of this encounter Visit Diagnoses Not on filedocumented in this encounter Care Teams Joint Machine Operator Relationship Specialty Start Date End Date Regi Martínez MD [address] [place] [address] PCP - General Family Medicine 10/19/18 documented as of this encounter
--- OUTSIDE RECORDS SUMMARY | 2025-02-14 14:29 | XMS_ITS | Encounter Summary ---
Author Organization [employer] Address [address] [facility] [address] [place] [address] Care Team Providers Care Brusher Tender Name Role Phone Regi Martínez MD Primary Care Provider [phone] Reason for Visit * Reason Comments Med Refill Encounter Details Date Type Department Care Team ([facility] Contact Info) Description 01/15/2024 Refill [facility] MEDICINE [address] [place], [place] [phone] Regi Martínez MD [address] [place], [place] [phone] Recurrent major depressive disorder, in full remission [...] Office Visit [facility] CHC MED & PEDS [address] [place] [address] Regi Martínez MD [address] [place], [place] [phone] documented as of this encounter Visit Diagnoses Diagnosis Recurrent major depressive disorder, in full remission (CMS/HCC) Gastroesophageal reflux disease without esophagitis Esophageal reflux Mixed hyperlipidemia Vertigo Dizziness and giddiness documented in this encounter Care Teams Brusher Tender Relationship Specialty Start Date End Date Regi Martínez MD [address] [place] [address] PCP - General Family Medicine 10/19/18 documented as of this encounter
--- OUTSIDE RECORDS SUMMARY | 2025-02-14 14:29 | XMS_ITS | Encounter Summary ---
Author Organization [employer] Address [address] [facility] [address] [place] [address] Care Team Providers Care Race Car Mechanic Name Role Phone Regi Martínez MD Primary Care Provider Reason for Visit * Reason Onset Date Comments Appointment Request 01/15/2024 Encounter Details Date Type Department Care Team (Late st Contact Info) Description 01/15/2024 Telephone [facility] MEDICINE [address] [place], [place] [phone] Regi Martínez MD [address] [place], [place] [phone] Appointment Request Social History Tobacco Use Types [...] Description 03/15/2025 11:30 AM EDT Office Visit [facility] CHC MED & PEDS [address] [place], [place] [phone] Regi Martínez MD [address] [place], [place] [phone] documented as of this encounter Visit Diagnoses Not on filedocumented in this encounter Care Teams Race Car Mechanic Relationship Specialty Start Date End Date Regi Martínez MD [address] [place] [address] PCP - General Family Medicine 10/19/18 documented as of this encounter
--- OUTSIDE RECORDS SUMMARY | 2025-02-14 14:29 | XMS_ITS | Clinical Summary ---
Author Organization [facility] Address [address] [place] [address] Care Team Providers Care Pole Maker Name Role Phone Unavailable Primary Care Provider [...]
--- OUTSIDE RECORDS SUMMARY | 2025-02-14 14:29 | XMS_ITS | Encounter Summary ---
Author Organization [employer] Address 75 [facility] 7t [place] [address] Care Team Providers Care Casing Finisher And Stuffer Name Role Phone Regi Martínez MD Primary Care Provider [phone] Encounter Details Date Type Department Care Team [...] 03/15/2025 11:30 AM EDT Office Visit [facility] CHC MED & PEDS [address] [place] [address] Regi Martínez MD [address] [place] [address] documented as of this encounter Procedures Procedure Name Priority Date/Time Associated Diagnosis Comments CBC WITH AUTO DIFFERENTIAL Routine 02/14/2025 12:59 PM EDT COMPREHENSIVE METABOLIC PANEL Routine 02/14/2025 12:59 PM EDT documented in this encounter Results * (ABNORMAL) Comprehensive Metabolic Panel (02/14/2025 12:59 PM EDT) Sodium 144 135 - 145 mmol/L [facility] Potassium 4.3 3.3 - 5.1 mmol/L [facility] Chloride 108 96 - 108 mmol/L [facility] Carbon Dioxide 27 22 - 29 mmol/L [facility] Anion Gap 13 12 - 20 [facility] Urea Nitrogen (BUN) 19(H) 9 - 16 mg/dL [facility] Creatinine, Serum 0.91 0.5 - 1.4 mg/dL [facility] Estimated Glomerular Filt Rate >60 [facility] Comment:Chronic Kidney Disea se: Estimated GFR < 60 mL/min/1.38p6Gjhulw Kidney Disease: Estimated GFR < 15 mL/min/1.73m2 Glucose 95 60 - 115 mg/dL [facility] Calcium 9.4 8.4 - 10.2 mg/dL [facility] Bilirubin, Total 0.4 0.0 - 1.0 mg/dL [facility] Aspartate Amino Transferase 30 5 - 31 U/L [facility] Alanine Aminotransferase 19 0 - 31 U/L [facility] Total Protein 7.4 6.5 - 8.0 g/dL [facility] Albumin Level 4.2 3.5 - 5.0 g/dL [facility] Alkaline Phosphatase 81 39 - 117 U/L [facility] 02/14/2025 12:5 9 PM EDT 02/14/2025 12:59 PM EDT us Generic External Data Provider LAB BLOOD ORDERAB LES Final Result [facility] [address] [place] [address] [phone] * (ABNORMAL) CBC auto differential (02/14/2025 12:59 PM EDT) White Blood Count 6.6 4.8 - 10.8 X10*3/uL [facility] Red Blood Count 4.72 4.20 - 5.50 X10*6/uL [facility] Hemoglobin 13.6 12.0 - 16.0 g/dl [facility] Hematocrit 40.4 37.0 - 47.0 % [facility] Mean Corpuscular Volume 85.6 80.0 - 98.0 fL [facility] Mean Corpuscular Hemoglobin 28.8 27.0 - 33.0 pg [facility] Mean Corpuscular HGB Conc 33.7 31.0 - 35.0 g/dl [facility] Red Cell Distribution Width 12.7 11.0 - 16.0 % [facility] Platelet Count 257 160 - 400 X10*3/uL [facility] Mean Platelet Volume 10.5 9.4 - 12.3 fL [facility] Neutrophils Percent Auto 45.6 45 - 73 % [facility] Imm Gran Pct Auto 0.5(H) 0.0 - 0.4 % [facility] Lymphocytes Percent Auto 39.1 20 - 40 % [facility] Monocytes Percent Auto 8.8 2 - 11 % [facility] Eosinophils Percent Auto 5.2(H) 0 - 4 % [facility] Basophils Percent Auto 0.8 0 - 2 % [facility] NRBC Pct Auto 0.0 0.0 - 0.2 /100WBC [facility] Neutrophils Absolute Auto 3.0 2.0 - 8.3 x10*3/uL [facility] Imm Gran Abs Auto 0.03 0.00 - 0.03 X10*3/uL [facility] Lymphocytes Absolute Auto 2.6 1.2 - 4.9 X10*3/uL [facility] Monocytes Absolute Auto 0.6 0.1 - 1.2 X10*3/uL [facility] Eosinophils Absolute Auto 0.3 0.0 - 0.4 X10*3/uL [facility] Basophils Absolute Auto 0.1 0.0 - 0.2 X10*3/uL [facility] NRBC Abs Auto 0.000 0.0 - 0.012 X10*3/uL [facility] 02/14/2025 12:5 9 PM EDT 02/14/2025 12:59 PM EDT us Generic External Data Provider LAB BLOOD ORDERAB LES Final Result Performing Organization Address City/State/[facility] Co de Phone Number [facility] [address] [place] [address] [phone] documented in this encounter Visit Diagnoses Not on filedocumented in this encounter Additional Health Concerns Assessment Noted Time PHQ-9 Depression Total Score: 0 12/14/19 25 11:02 AM EST documented as of this encounter Care Teams Casing Finisher And Stuffer Relationship Specialty Start Date End Date Regi Martínez MD [address] [place] [address] PCP - General Family Medicine 10/19/18 documented as of this encounter
--- OUTSIDE RECORDS SUMMARY | 2025-02-14 14:30 | XMS_ITS | Encounter Summary ---
Author Organization [employer] [facility] Address [address] [facility] [address] [place] [address] Care Team Providers Care Filling Machine Tender Name Role Phone Regi Martínez MD Primary Care Provider [phone] Reason for Visit * Reason Comments Med Refill Encounter Details Date Type Department Care Team (Late Contact Info) Description 12/30/2023 Refill [facility] MED & PEDS [address] [place], [place] [phone] Jean Claude Reyes MD [address] [place], [place] [phone] Social History Tobacco Use Types Packs/Day Years [...] Description 03/15/2025 11:30 AM EDT Office Visit [facility] CHC MED & PEDS [address] [place] [address] Regi Martínez MD [address] [place], [place] [phone] documented as of this encounter Visit Diagnoses Not on filedocumented in this encounter Care Teams Filling Machine Tender Relationship Specialty Start Date End Date Regi Martínez MD [address] [place], [place] [phone] PCP - General Family Medicine 10/19/18 documented as of this encounter
--- OUTSIDE RECORDS SUMMARY | 2025-02-14 14:30 | XMS_ITS | Encounter Summary ---
Author Organization [employer] Address [address] [facility] [address] [place] [address] Care Team Providers Care Shake Backboard Notcher Name Role Phone Regi Martínez MD Primary Care Provider [phone] Reason for Visit * Reason Onset Date Comments Appointment Request 11/19/2023 Encounter Details Date Type Department Care Team (Late st Contact Info) Description 11/19/2023 Telephone [facility] MEDICINE [address] [place], [place] [phone] Regi Martínez MD [address] [place], [place] [phone] Appointment Request Social History Tobacco Use Types [...] Description 03/15/2025 11:30 AM EDT Office Visit [facility] CHC MED & PEDS [address] [place], [place] [phone] Regi Martínez MD [address] [place], [place] [phone] documented as of this encounter Visit Diagnoses Not on filedocumented in this encounter Care Teams Shake Backboard Notcher Relationship Specialty Start Date End Date Regi Martínez MD [address] [place] [address] PCP - General Family Medicine 10/19/18 documented as of this encounter
--- OUTSIDE RECORDS SUMMARY | 2025-02-14 14:30 | XMS_ITS | Encounter Summary ---
Author Organization [employer] Address [address] [facility] 7t [place] [address] Care Team Providers Care Script Developer Name Role Phone Regi Martínez MD Primary Care Provider [phone] Reason for Visit * Reason Comments Med Refill Encounter Details Date Type Department Care Team ([facility] Contact Info) Description 12/30/2023 Refill [facility] MEDICINE [address] [place], [place] [phone] Regi Martínez MD [address] [place], [place] [phone] Recurrent major depressive disorder, in full remission [...] Description 03/15/2025 11:30 AM EDT Office Visit [facility] CHC MED & PEDS [address] [place] [address] Regi Martínez MD [address] [place], [place] [phone] documented as of this encounter Visit Diagnoses Diagnosis Recurrent major depressive disorder, in full remission (CMS/HCC) Gastroesophageal reflux disease without esophagitis Esophageal reflux Mixed hyperlipidemia Rash Rash and other nonspecific skin eruption documented in this encounter Care Teams Script Developer Relationship Specialty Start Date End Date Regi Martínez MD [address] [place] [address] PCP - General Family Medicine 10/19/18 documented as of this encounter
--- OUTSIDE RECORDS SUMMARY | 2025-02-14 14:30 | XMS_ITS | Encounter Summary ---
Author Organization [employer] Address [address] [facility] 7t [place] [address] Care Team Providers Care Focus Puller Name Role Phone Regi Martínez MD Primary Care Provider [phone] Reason for Visit * Reason Comments Med Refill Encounter Details Date Type Department Care Team (Late Contact Info) Description 12/30/2023 Refill [facility] MEDICINE [address] [place], [place] [phone] Regi Martínez MD [address] [place], [place] [phone] Recurrent major depressive disorder, in full remission [...] Description 03/15/2025 11:30 AM EDT Office Visit [facility] CHC MED & PEDS [address] [place] [address] Regi Martínez MD [address] [place], [place] [phone] documented as of this encounter Visit Diagnoses Diagnosis Recurrent major depressive disorder, in full remission (CMS/HCC) Gastroesophageal reflux disease without esophagitis Esophageal reflux Mixed hyperlipidemia Vertigo Dizziness and giddiness documented in this encounter Care Teams Focus Puller Relationship Specialty Start Date End Date Regi Martínez MD [address] [place] [address] PCP - General Family Medicine 10/19/18 documented as of this encounter
== END 2025-02-14 11:31 | disposition home or self-care (01) ==
LOC: HO.LAB 11:30
PROVIDERS: PCP Pediatrics; Visit Provider Nurse Practitioner
DX: Z01.818 Encounter for other preprocedural examination (principal); K21.9 Gastro-esophageal reflux disease without esophagitis; E66.9 Obesity, unspecified
CPT/HCPCS: 36415; 80053; 85025; 99212

== ENCOUNTER 2025-03-15 12:05 | Outpatient (REF) | payer MEDICARE, MEDICAID, SELFPAY ==
--- OUTSIDE RECORDS SUMMARY | 2025-03-15 12:48 | XMS_ITS | Clinical Summary ---
Author Organization [facility] Address [address] [place] [address] Care Team Providers Care Public Health Clinical Nurse Specialist Name Role Phone Unavailable Primary Care Provider [...]
[2025-03-15 14:42] LABS: Estimated Average Glucose 111 mg/dL; Hemoglobin A1C 126.5253 umol/L; Hemoglobin A1c % 5.5 % (<6.0); Total Hemoglobin (HGBA1C) 3483.7103 umol/L
[2025-03-15 14:55] LABS: Alanine Aminotransferase 15 U/L (0-31); Albumin Level 4.2 g/dL (3.5-5.0); Alkaline Phosphatase 83 U/L (39-117); Aspartate Amino Transferase 24 U/L (5-31); Bilirubin Direct 0.2 mg/dL (0.0-0.5); Bilirubin Total 0.4 mg/dL (0.0-1.0); Cholesterol 193 mg/dL (<200); HDL Cholesterol 61 mg/dL (>40); LDL Cholesterol Calculated 121 mg/dL (<100); Total Protein 7.3 g/dL (6.5-8.0); Triglycerides 56 mg/dL (<150)
[2025-03-15 14:57] LABS: Creatinine Urine 94.09 mg/dL; Microalbumin Urine < 5.0 mg/L
[2025-03-15 14:58] LABS: TSH reflex Free T4 1.35 uIU/mL (0.32-4.0); Vitamin D 25-OH Total 94.2 ng/mL (>30)
[2025-03-15 15:13] LABS: Folate 12.3 ng/mL (> or = 4.0); Vitamin B12 343 pg/mL (200-900)
== END 2025-03-15 12:06 | disposition home or self-care (01) ==
LOC: HO.CHCLDS 12:05
PROVIDERS: Visit Provider Pediatrics
DX: E66.3 Overweight (principal); I10 Essential (primary) hypertension; R73.01 Impaired fasting glucose; E66.2 Morbid (severe) obesity with alveolar hypoventilation
CPT/HCPCS: 36415; 80061; 80076; 82306; 82570; 82607; 82746; 83036; 84443

== ENCOUNTER 2025-04-11 12:59 | Outpatient (AMB) | payer MEDICARE, MEDICAID, SELFPAY ==
--- NOTE | 2025-04-11 13:13 | A.OFFVIS_ITS ---
Vital Signs 04/11/25 13:20 Height 5 ft 1 in Weight 199 lb 15.348 oz BMI 37.8 BP 152/90 H Blood Pressure Location Lt brachial Position Sitting Pulse 92 Pulse Source Pulse Oximeter Pulse Oximetry (%) 98 Oxygen Delivery Method Room Air Intake Visit Reasons: Knee OA/injection Intake Note: Patient presents for knee OA/injection follow up. Allergies adhesive tape (Adhesive Tape) Allergy (Mild, Verified 04/11/25 13:20) BLISTERS latex Allergy (Intermediate, Uncoded 02/14/25 11:40) burning Medication List - Last Reconciled 04/11/25 by Verna Her MD albuterol sulfate 90 mcg/actuation (Ventolin HFA) 2 puffs inhalation Q4H PRN blood pressure test kit-large As directed bupropion HCl XL 150 mg PO QAM calcium carbonate-vitamin D3 600 mg-10 mcg (400 unit) 1 tab PO Q12H duloxetine 60 mg PO DAILY fluticasone propionate 50 mcg/actuation intranasal fluticasone propionate 220 mcg/actuation (Flovent HFA) 2 puffs inhalation BID gabapentin 300 mg PO TID ibuprofen 800 mg PO Q8H lisinopril 20 mg PO DAILY meclizine 25 mg PO TID PRN minocycline 50 mg PO DAILY nabumetone 750 mg PO BID omeprazole 20 mg PO DAILY simvastatin 40 mg PO DAILY sodium,potassium,mag sulfates 17.5-3.13-1.6 gram (Suprep Bowel Prep Kit) 480 mL orally; FOR COLONOSCOPY PREP trazodone 100 mg PO BEDTIME PRN HPI Comments Details: Patient is a 69-year-old female with asthma, depression, hypertension, hyperlipidemia, GERD, and polyarticular osteoarthritis here today for follow up Interval History: Patient last seen 08/10/[address] Weathers. At that time she was following up for her polyarticular osteoarthritis and received bilateral knee injections. Today, States that the injections helped her for 1 month and since then she has been having pain. No swelling Also complaining of neck pain with radiation down her right arm Rheumatologic History: Initial history: This is a 68-year-old female with bilateral knee osteoarthritis who presents for follow-up. She was last seen by Macrina Dougherty 06/2022. She states that she continues to have bilateral knee pain. She states that she saw an orthopedist in the past and knee replacement was discussed but patient does not want to proceed with it. She states that she had bilateral knee injections about a year ago and states that it provides moderate relief. She can not think of any side effects related to steroid injections. She does not have diabetes. Current Rheumatology Medication(s): [facility] Medical History (Updated 02/14/25 @ 11:58 by NATASHA Esteves) Breast cancer Hyperlipidemia COPD (chronic obstructive pulmonary disease) Osteoarthritis Obesity Fibromyalgia HTN (hypertension) Surgical History Hx of colonoscopy S/P carpal tunnel release H/O hemorrhoidectomy History of breast surgery Hx of hernia repair Hx of cholecystectomy Family History Father Diabetes Mother Breast cancer Son Lung cancer Social History Household Members: Significant Other Housing: House Alcohol intake: never Patient Tobacco Use Status: Former Tobacco user Review of Systems Const Details: Review of Systems Constitutional: Denies fever, chills, weight loss ENT: Denies vision changes, eye pain or eye redness, dental caries, dry mouth GI: Denies nausea, vomiting, diarrhea, abdominal pain, change in BM Pulm: Denies SOB, OOR, hemoptysis, wheezing Cards: Denies chest pain, palpitations Skin: Denies Raynaud's, rash, nail changes, photosensitivity, CPC: Denies headaches, weakness, paresthesias, recurrent falls MSK: as per HPI All other systems reviewed and are unremarkable except noted above Physical Exam Vital Signs: Last Vital Signs Pulse 92 04/11/25 13:20 BP 152/90 H 04/11/25 13:20 Pulse Ox 98 04/11/25 13:20 Oxygen Delivery Method Room Air 04/11/25 13:20 BMI result Body Mass Index 37.8 Vital signs reviewed Physical Examination CONSTITUITIONAL Patient alert and cooperative. Well appearing and in no apparent painful distress HEENT Conjunctiva and sclera clear. No lymphadenopathy. CHEST/RESPIRATORY SYSTEM Normal respiratory effort and able to speak in complete sentences. Clear to auscultation bilaterally. No crackles, rales, rhonchi, wheezes heard. CARDIAC SYSTEM Regular rate and rhythm. S1 and S2 heard no murmurs. Radial pulses intact bilaterally MSK Hands * Right Hand: Able to make a fist. No swelling or tenderness to palpation of these joints. No deformities noted. * Left Hand: Able to make a fist. No swelling or tenderness to palpation of these joints. No deformities noted. * Bilateral herbeden's nodes noted Wrists * Right Wrist: Full ROM. 70 degrees of wrist flexion, 80 degrees of wrist extension. No swelling or TTP * Left Wrist: Full ROM. 70 degrees of wrist flexion, 80 degrees of wrist extension. No swelling or TTP Elbows * Right Elbow: Full ROM. No swelling or TTP. No TTP of the medial and lateral epicondyles * Left Elbow: Full ROM. No swelling or TTP. No TTP of the medial and lateral epicondyles Shoulders * Right shoulder: Full ROM. No swelling noted. No TTP of the AC joint, subacromial bursa or posterior shoulder * Left shoulder: Full ROM. No swelling noted. No TTP of the AC joint, subacromial bursa or posterior shoulder Hips * Right hip: Good ROM. No pain elicited with hip flexion/internal rotation/external rotation * Left hip: Good ROM. No pain elicited with hip flexion/internal rotation/external rotation Hip bursa: No tenderness to palpation bilaterally Knees * Right knee: Decreased ROM to flexion and extension. No swelling noted. No TTP of the knee joint lie or pes anserine bursa * Left knee: Decreased ROM to flexion and extension. No swelling noted. No TTP of the knee joint lie or pes anserine bursa. Ankles * Right ankle: Good ankle dorsiflexion and plantar flexion. No swelling. No TTP of the ankle joint * Left ankle: Good ankle dorsiflexion and plantar flexion. No swelling. No TTP of the ankle joint Feet * Right foot: Negative squeeze test * Left foot: Negative squeeze test Tender points? * No tenderness to palpation of the bilateral trapezius, supraspinatus, anterior costochondral junctions, bilateral suboccipital muscle insertions SKIN No rashes Office Procedures AMB Joint Injection/Aspiration Joint Injection/Aspiration Details: Procedure was explained to the patient and informed consent was obtained. ? Risks associated with the procedure were discussed with the patient including but not limited to bleeding, infection, drug reactions and reactions to the topical anesthetic. Patient made aware of signs to look out for infectious complications. The area of interest was identified and confirmed with patient. ?This was subsequently cleaned with chlorhexidine x3. ? The area was then anesthetized using ethyl chloride spray. 40 mg Kenalog with 1 cc 1% lidocaine was injected without issue. ?Minimal to no bleeding. ?Patient tolerated procedure. Primary Site: left knee Prep: site was prepped using aseptic technique and ethochloride spray was applied Injected: 40 mg of, Kenalog, with 1 mL of, 1% plain lidocaine and in the joint Approach Used: anterolateral Procedure: The patient tolerated the procedure well Coding 79899 - Large joint Procedure code (CPT) selection complete AMB Joint Injection/Aspiration Joint Injection/Aspiration Details: Procedure was explained to the patient and informed consent was obtained. ? Risks associated with the procedure were discussed with the patient including but not limited to bleeding, infection, drug reactions and reactions to the topical anesthetic. Patient made aware of signs to look out for infectious complications. The area of interest was identified and confirmed with patient. ?This was subsequently cleaned with chlorhexidine x3. ? The area was then anesthetized using ethyl chloride spray. 40 mg Kenalog with 1 cc 1% lidocaine was injected without issue. ?Minimal to no bleeding. ?Patient tolerated procedure. Primary Site: right knee Prep: site was prepped using aseptic technique and ethochloride spray was applied Injected: 40 mg of, Kenalog, with 1 mL of, 1% plain lidocaine and in the joint Approach Used: anterolateral Procedure: The patient tolerated the procedure well Coding 98418 - Large joint Procedure code (CPT) selection complete Office Meds lidocaine (PF) 10 mg/mL (1 %) injection solution Performing Provider: Verna Her MD Performing Location: [facility] Rheumatology Administered by: Verna Her MD on 04/11/25 14:06 Dose Route Admin Location Dispensed Lot Number Expiration Date [facility] [employer] 1 mL Infiltration left knee 2 mL [id number] 12/17/26 87910-429-43 LB [employer] Total Dispensed Waste 2 mL 50 % Kenalog 40 mg/mL suspension for injection Performing Provider: Verna Her MD Performing Location: [facility] Rheumatology Administered by: Verna Her MD on 04/11/25 14:06 Dose Route Admin Location Dispensed Lot Number Expiration Date [facility] [employer] 40 mg intra-articular left knee 1 mL [id number] 04/18/26 [address]-4 [employer] Total Dispensed Waste 1 mL 0 % lidocaine (PF) 10 mg/mL (1 %) injection solution Performing Provider: Verna Her MD Performing Location: [facility] Rheumatology Administered by: Verna Her MD on 04/11/25 14:01 Dose Route Admin Location Dispensed Lot Number Expiration Date [facility] [employer] 1 mL Infiltration right knee 2 mL [id number] 12/17/26 76731-497-71 [employer] Total Dispensed Waste 2 mL 50 % Kenalog 40 mg/mL suspension for injection Performing Provider: Verna Her MD Performing Location: [facility] Rheumatology Administered by: Verna Her MD on 04/11/25 14:01 Dose Route Admin Location Dispensed Lot Number Expiration Date [facility] [employer] 40 mg intra-articular right knee 1 mL [id number] 04/18/26 [address]- 1 [employer] Total Dispensed Waste 1 mL 0 % Results Reviewed Results Reviewed: Laboratory Tests 02/14/25 03/15/25 12:59 12:07 WBC 6.6 RBC 4.72 Hgb 13.6 Hct 40.4 Plt Count 257 Sodium 144 Potassium 4.3 Chloride 108 Carbon Dioxide 27 BUN 19 H Creatinine 0.91 Total Bilirubin 0.4 Direct Bilirubin 0.2 AST 24 ALT 15 25-OH Vitamin D Total 94.2 XR Bilateral Knees 03/2023 FINDINGS: Right: Bone alignment is normal. No fracture or dislocation. Severe tricompartment osteoarthritis. Large joint effusion. Left: Slight varus angulation. Bone alignment is otherwise normal. No fracture or dislocation. Severe tricompartment arthritis. Small to moderate joint effusion. IMPRESSION: Severe bilateral osteoarthritis. Assessment & Plan Assessment & Plan (1) Primary osteoarthritis of knees, bilateral: Code(s): M17.0 - Bilateral primary osteoarthritis of knee Category: Medical Plan: #Bilateral knee OA Patient is a 69-year-old female with bilateral knee osteoarthritis here today for follow up. Status post steroid injection today. Plan - s/p steroid injection today - RTC 6 months (2) Neck Pain: Code(s): M54.2 - Cervicalgia Plan: #Neck pain Likely 2/2 degenerative joint disease Check neck XR Send to PT after neck XR results Plan I spent 22 minutes reviewing the record and labs, taking a history, examining the patient, discussing the treatment plan, ordering diagnostic work up and documenting in the medical record Orders: Orders AMB Joint Injection/Aspiration Today M17.0 - Bilateral primary osteoarthritis of knee AMB Joint Injection/Aspiration Today M17.0 - Bilateral primary osteoarthritis of knee XR cervical spine 4V Today M54.2 - Cervicalgia Medications: Discontinued ibuprofen Discontinued Reason: Patient no longer taking 800 mg PO Q8H 90 tabs 2RF M17.0 - Bilateral primary osteoarthritis of knee Coding Level of Care Code Est Pt Level 3 (62483) Diagnoses Primary osteoarthritis of knees, bilateral M17.0 Neck Pain M54.2 CPT Codes Coding - 25174 Large joint: 61573 - Large joint ([id number]) Coding - 50688 Large joint: 00469 - Large joint ([id number])
[2025-04-11 13:20] VITALS: BP 152/90; PULSE 92; O2SAT 98; BMI 37.8
--- OUTSIDE RECORDS SUMMARY | 2025-04-11 14:42 | XMS_ITS | Clinical Summary ---
Author Organization [facility] Address [address] [place] [address] Care Team Providers Care Electrician Name Role Phone Unavailable Primary Care Provider [...]
== END 2025-04-11 14:08 | disposition home or self-care (01) ==
LOC: HO.RHE 13:00
PROVIDERS: PCP Pediatrics; Visit Provider Student in an Organized Health Care Education/Training Program
DX: M17.0 Bilateral primary osteoarthritis of knee (principal); M54.2 Cervicalgia
CPT/HCPCS: 20610; 99213

== ENCOUNTER → 2025-04-11 12:59 | Outpatient (BNVA) | payer MEDICARE, MEDICAID, SELFPAY | PROVIDERS: PCP Pediatrics; Visit Provider Student in an Organized Health Care Education/Training Program | DX: M17.0 Bilateral primary osteoarthritis of knee (principal); M54.2 Cervicalgia | CPT/HCPCS: 20610; 99212; J3300 ==

== ENCOUNTER 2025-05-19 10:13 | Outpatient (REF) | payer MEDICARE, MEDICAID, SELFPAY ==
--- NOTE | ~2025-05-19 | XR_ITS ---
EXAMINATION: XR CERVICAL SPINE CLINICAL INFORMATION: M54.2 - Cervicalgia COMPARISON: None available. TECHNIQUE: 4 views of the cervical spine were obtained. FINDINGS: There is no prevertebral edema. C2-3: There is mild disc space narrowing. C3-4: There is mild disc space narrowing. C4-5: There is moderate disc space narrowing with anterior osteophytes. Osteophytes mildly narrow the neural foramina. C5-6: There is mild disc space narrowing with endplate osteophytes. Osteophytes minimally narrow the neural foramina. C6-7: There is moderate disc space narrowing and endplate osteophytes. Ossified is mildly narrow the neural foramina. C7-T1 is obscured on the lateral view. XR/XR cervical spine 4V IMPRESSION: Multilevel degenerative changes are most advanced at C6-7. Electronically signed by: Pacheco Sanchez MD 05/19/2025 10:44 AM EDT
--- OUTSIDE RECORDS SUMMARY | 2025-05-19 10:24 | XMS_ITS | Encounter Summary ---
Author Organization [employer] Address [address] [place] [address] [address] [place] [address] Care Team Providers Care Scrap Hooker Name Role Phone Regi Martínez MD Primary Care Provider [phone] Reason for Visit * Reason Comments Med Refill Encounter Details Date Type Department Care Team (Late st Contact Info) Description 03/13/2023 Refill [facility] [address] [place], [place] [phone] Regi Martínez MD [address], [place] [phone] Social History Tobacco Use Types Packs/Day Years [...] on filedocumented in this encounter Care Teams Scrap Hooker Relationship Specialty Start Date End Date Regi Martínez MD [address], [place] [phone] PCP - General Family Medicine 10/19/18 documented as of this encounter
--- OUTSIDE RECORDS SUMMARY | 2025-05-19 10:24 | XMS_ITS | Clinical Summary ---
Author Organization [facility] Address [address] [place] [address] Care Team Providers Care Toxicology Teacher Name Role Phone Unavailable Primary Care Provider [...]
== END 2025-05-19 10:14 | disposition home or self-care (01) ==
LOC: HO.HMGCX 10:13
PROVIDERS: PCP Pediatrics; Visit Provider Student in an Organized Health Care Education/Training Program
DX: M54.2 Cervicalgia (principal)
CPT/HCPCS: 72050

== ENCOUNTER → 2025-05-19 10:19 | Outpatient (BNV) | payer MEDICARE, MEDICAID, SELFPAY | PROVIDERS: PCP Pediatrics; Visit Provider Radiology Diagnostic Radiology | DX: M50.30 Other cervical disc degeneration, unspecified cervical region (principal) | CPT/HCPCS: 72050 ==

== ENCOUNTER 2025-05-25 09:12 | Day surgery (SDC) | payer MEDICARE, OTHER, SELFPAY ==
--- OUTSIDE RECORDS SUMMARY | 2025-05-09 13:08 | XMS_ITS | Encounter Summary ---
Author Organization [facility] Address [address] [place] [address] [address] [place] [address] Care Team Providers Care Mate First Name Role Phone Regi Martínez MD Primary Care Provider [phone] Reason for Visit * Reason Comments Med Refill Encounter Details Date Type Department Care Team (Late st Contact Info) Description 03/13/2023 Refill [facility] [address] [place], [place] [phone] Regi Martínez MD [address], [place] [phone] Social History Tobacco Use Types Packs/Day Years Used Date Smoking Tobacco: Never Assessed Comments Unknown Sex and Gender Information Value Date Recorded Sex Assigned at Female 08/18/2022 10:19 AM EDT Legal Sex Female 10:19 AM EDT Gender Identity Female 01/29/2024 8:57 AM EDT Sexual Orientation Straight 03/15/2025 2: 20 PM EDT documented as of this encounter Plan of Treatment Not on file documented as of this encounter Visit Diagnoses Not on filedocumented in this encounter Care Teams Mate First Relationship Specialty Start Date End Date Regi Martínez MD [address], [place] [phone] PCP - General Family Medicine 10/19/18 documented as of this encounter
--- OUTSIDE RECORDS SUMMARY | 2025-05-09 13:08 | XMS_ITS | Clinical Summary ---
Author Organization [facility] Address [address] [place] [address] Care Team Providers Care Cp Bleacher Operator Name Role Phone Unavailable Primary Care Provider [...] Vaccine ( - 2023-2 5 season) 2024 Depression Screening 10/19/2024 Influenza Vaccine (#1) 2025 RSV Immunization Adult Patie nts (1 [...]
[2025-05-23 08:53] VITALS: BMI 35.3
--- NOTE | 2025-05-24 08:44 | HO.ANESPROP2 ---
Documented by User: Avani Stapleton NP 05/24/25 08:45 HPI - Anesthesia Eval Consult details Narrative: 69yo F for Colonoscopy PMFSH Active Problems Active Problems: All Active Problems Obesity (Acute) Pre-op examination (Acute) GERD (gastroesophageal reflux disease) (Acute) Vertigo (Acute) Primary osteoarthritis of knees, bilateral (Acute) Joint pain (Acute) Past Medical History Medical History Breast cancer Hyperlipidemia COPD (chronic obstructive pulmonary disease) Osteoarthritis Obesity Fibromyalgia HTN (hypertension) Family History Family History Father Diabetes Mother Breast cancer Son Lung cancer Surgical History Surgical History Hx of colonoscopy S/P carpal tunnel release H/O hemorrhoidectomy History of breast surgery Hx of hernia repair Hx of cholecystectomy Social History Social History Household Members: Significant Other Housing: House Alcohol intake: never Patient Tobacco Use Status: Former Tobacco user Use of substances other than those prescribed or required for medical reasons: No Advance Directives: No Advance Directives Information Provided: Yes Meds Allergies Allergy/AdvReac Type Severity Reaction Status Date / Time latex Allergy Intermediate burning Verified 05/23/25 08:48 sensation adhesive tape (Adhesive Tape) Allergy Mild BLISTERS Verified 04/11/25 13:20 Home Medications ?Medication ?Instructions ?Recorded ?Confirmed ?Last Taken ?Type bupropion HCl 150 mg 24 hr tablet, 150 mg PO QAM 01/04/21 05/23/25 Unknown History extended release gabapentin 300 mg capsule 300 mg PO TID 01/04/21 05/23/25 Unknown History lisinopril 20 mg tablet 20 mg PO DAILY 01/04/21 05/23/25 Unknown History minocycline 50 mg capsule 50 mg PO DAILY 01/04/21 05/23/25 Unknown History nabumetone 750 mg tablet 750 mg PO BID 01/04/21 05/23/25 Unknown History omeprazole 20 mg capsule,delayed 20 mg PO DAILY 01/04/21 05/23/25 Unknown History release simvastatin 40 mg tablet 40 mg PO DAILY 01/04/21 05/23/25 Unknown History trazodone 100 mg tablet 100 mg PO BEDTIME PRN Insomnia 01/04/21 05/23/25 Unknown History albuterol sulfate 90 mcg/actuation 2 puff inhalation Q4H PRN 07/09/22 05/23/25 Unknown History aerosol inhaler (Ventolin HFA) Shortness Of Breath Or Wheezing fluticasone propionate 220 2 puff inhalation BID 07/09/22 05/23/25 Unknown History mcg/actuation HFA aerosol inhaler (Flovent HFA) fluticasone propionate 50 1 spray intranasal DAILY 07/09/22 05/23/25 Unknown History mcg/actuation nasal spray,suspension meclizine 25 mg tablet 25 mg PO TID PRN Vertigo 07/09/22 05/23/25 Unknown History blood pressure test kit-large #1 ea 02/14/25 04/11/25 Unknown History calcium 600 mg (as 1 tab PO Q12H 02/14/25 05/23/25 Unknown History carbonate)-vitamin D3 10 mcg (400 unit) tablet Exam Height,Weight and Vital Signs: Height 5 ft 1 in Weight 84.822 kg Pertinent Lab Results Pertinent Lab Results: Laboratory Tests 02/14/25 12:59 WBC 6.6 Hgb 13.6 Hct 40.4 Plt Count 257 Sodium 144 Potassium 4.3 Chloride 108 Carbon Dioxide 27 BUN 19 H Creatinine 0.91 Assessment and Plan Assessment Anesthesia Assessment: Chart Reviewed Documented by User: Kiara Cornejo MD 05/25/25 10:13 PMFSH Past Medical History Medical History Breast cancer Hyperlipidemia COPD (chronic obstructive pulmonary disease) Osteoarthritis Obesity Fibromyalgia HTN (hypertension) Family History Family History Father Diabetes Mother Breast cancer Son Lung cancer Family history of problems with anesthesia: No Surgical History Surgical History Hx of colonoscopy S/P carpal tunnel release H/O hemorrhoidectomy History of breast surgery Hx of hernia repair Hx of cholecystectomy History of Problems with Anesthesia: No Social History Social History Household Members: Significant Other Housing: House Alcohol intake: never Patient Tobacco Use Status: Former Tobacco user Use of substances other than those prescribed or required for medical reasons: No Advance Directives: No Advance Directives Information Provided: Yes Meds Allergies Allergy/AdvReac Type Severity Reaction Status Date / Time latex Allergy Intermediate burning Verified 05/23/25 08:48 sensation adhesive tape (Adhesive Tape) Allergy Mild BLISTERS Verified 04/11/25 13:20 Home Medications ?Medication ?Instructions ?Recorded ?Confirmed ?Last Taken ?Type bupropion HCl 150 mg 24 hr tablet, 150 mg PO QAM 01/04/21 05/23/25 Unknown History extended release gabapentin 300 mg capsule 300 mg PO TID 01/04/21 05/23/25 Unknown History lisinopril 20 mg tablet 20 mg PO DAILY 01/04/21 05/23/25 Unknown History minocycline 50 mg capsule 50 mg PO DAILY 01/04/21 05/23/25 Unknown History nabumetone 750 mg tablet 750 mg PO BID 01/04/21 05/23/25 Unknown History omeprazole 20 mg capsule,delayed 20 mg PO DAILY 01/04/21 05/23/25 Unknown History release simvastatin 40 mg tablet 40 mg PO DAILY 01/04/21 05/23/25 Unknown History trazodone 100 mg tablet 100 mg PO BEDTIME PRN Insomnia 01/04/21 05/23/25 Unknown History albuterol sulfate 90 mcg/actuation 2 puff inhalation Q4H PRN 07/09/22 05/23/25 Unknown History aerosol inhaler (Ventolin HFA) Shortness Of Breath Or Wheezing fluticasone propionate 220 2 puff inhalation BID 07/09/22 05/23/25 Unknown History mcg/actuation HFA aerosol inhaler (Flovent HFA) fluticasone propionate 50 1 spray intranasal DAILY 07/09/22 05/23/25 Unknown History mcg/actuation nasal spray,suspension meclizine 25 mg tablet 25 mg PO TID PRN Vertigo 07/09/22 05/23/25 Unknown History blood pressure test kit-nilda #1 ea 02/14/25 04/11/25 Unknown History calcium 600 mg (as 1 tab PO Q12H 02/14/25 05/23/25 Unknown History carbonate)-vitamin D3 10 mcg (400 unit) tablet Exam Airway Mallampati Class: II TM Dist: <=3cm Neck ROM: Limited Heart: rrr Lungs: cta Assessment and Plan Assessment Anesthesia Assessment: Anesthesia Plan Discussed Final Anesthetic Review Family History of Problems with Anesthesia: No History of Problems with Anesthesia: No NPO: Yes ASA Class: III Final Preanesthetic Review: No Changes in Pt Med Stat, Meds/Allgs Chart Reviewed, Consent Obtained/Reviewed and Anes Risks/Benef Reviewed Patient Risk: Intermediate Procedure Risk: Low Anesthetic Plan Anesthetic Plan: MAC: Disposition: Standard PACU
[2025-05-25 09:50] VITALS: BP 169/86; PULSE 96; RESP 16; TEMP 36.6; O2SAT 94
[2025-05-25] MEDS: Lactated Ringers 1,000 ML 100 ML IVCONT (09:53)
--- NOTE | 2025-05-25 09:54 | PC.NURSE ---
Pt given enema and sent to bathroom, told to hold as long as possible. Pt told not to flush, pt did in fact flush so unable to assess prep
--- NOTE | 2025-05-25 09:54 | MHC.SHP ---
Pre-Procedural Eval Section A - 24 Hr Update-Section A only Date of Service: 05/25/25 Section B - Complete if H&P > 30 days Chief Complaint: positive cologuard Details of Present Illness: PMX Obesity-BMI 32 COPD Hypertension High cholesterol Impaired fasting glucose Depression Vertigo GERD History of breast cancer Fibromyalgia syndrome * SURGICAL HISTORY Cholecystectomy Hemorrhoidectomy Hernia repair - umbilical Breast surgery - Rtlumpe catina Tonsillectomy * ALLERGIES Adhesive tape Latex * Allergies: Allergies Allergy/AdvReac Type Severity Reaction Status Date / Time latex Allergy Intermediate burning Verified 05/23/25 08:48 sensation adhesive tape (Adhesive Tape) Allergy Mild BLISTERS Verified 04/11/25 13:20 Review of Systems Review of Systems Comment: Ten point ROS negative Exam Exam Comment: Gen appear: No acute distress HEENT: no icterus Chest: No overt resp distress Abd: soft, nontender, nondistended Psych: Stable affect, answering questions appropriately Neuro: A/Ox3 noted to move all extremities spontaneously Ext: no peripheral edema Plan Diagnosis/Plan: Unchanged I have reviewed the history and physical and performed a pertinent physical examination on my patient. No changes have occurred unless specified. Time Spent With Patient Time: Total time managing care of this patient today ____ minutes.
--- NOTE | 2025-05-25 11:11 | P.OP_ITS ---
Operative Note Operative Note Date of Service: 05/25/25 Narrative: Procedure: Colonoscopy Indication: Positive cologuard Endoscopist: Lynette Coleman MD Anesthesia Provider: Dr Jad Mtz Anesthesia type: MAC Instrument: Olympus CF-[id number] Consent: Indication, risks vs benefits, and alternatives were discussed with the patient who gave written informed consent to proceed. EKG, pulse, pulse oximetry and blood pressure were monitored throughout the procedure. Please see anesthesia flowsheet. Procedure: The patient was brought to the procedure room and placed in the left lateral decubitus position. IV medications were administered by the anesthesia provider in attendance. A digital rectal exam was performed which was normal. The colonoscope was then inserted through the anus and advanced through the colon to the cecum at 95 cm. Mucosa was carefully examined under high definition white light as the instrument was slowly withdrawn in a retrograde panoramic fashion. Retroflexion was performed in rectum. The procedure was somewhat difficult and required pressure to intubate the cecum despite using an adult scope. There were no immediate obvious complications. The quality of the prep was BBPS: 1+1+2 = inadequate Withdrawal time 9 minutes. Limitations: Poor prep. Findings: Mucosa: Adherent liquid and semisolid stool throughout most of the right colon limiting visualization. Patient with history of positive Cologuard, no large masses were seen. Exam was not adequate for polyp detection. Protruding lesions: * Large internal hemorrhoids without stigmata of recent bleeding. Excavated lesions: * Moderate diverticulosis of left sided colon. Impression: 1. Poor prep colonoscopy 2. Diverticulosis 3. Internal hemorrhoids Recommendations: - Patient with history of positive Cologuard in 2023, no large masses were seen. Exam was not adequate for polyp detection. - Repeat colonoscopy will be set up within 3 months. - Consider using colowrap in addition to starting with adult colonoscope.
[2025-05-25 11:16] VITALS: BP 89/44; PULSE 79; RESP 17; TEMP 36.4; O2SAT 98
[2025-05-25 11:30] VITALS: BP 152/78; PULSE 74; RESP 17; O2SAT 98
[2025-05-25 11:45] VITALS: BP 148/75; PULSE 98; RESP 17; O2SAT 100
[2025-05-25 12:00] VITALS: BP 154/59; PULSE 61; RESP 17; TEMP 36.4; O2SAT 100
== END 2025-05-25 13:00 | disposition home or self-care (01) ==
PROVIDERS: PCP Pediatrics; Visit Provider Internal Medicine
PROC: 0DJD8ZZ Inspection of Lower Intestinal Tract, Via Natural or Artificial Opening Endoscopic (ICD-10-PCS; CPT 45378; principal; 2025-05-25 11:00)
DX: R19.5 Other fecal abnormalities (principal); K57.30 Diverticulosis of large intestine without perforation or abscess without bleeding; K64.8 Other hemorrhoids; K21.9 Gastro-esophageal reflux disease without esophagitis; I10 Essential (primary) hypertension; E78.00 Pure hypercholesterolemia, unspecified; R73.01 Impaired fasting glucose; M79.7 Fibromyalgia; J44.9 Chronic obstructive pulmonary disease, unspecified; Z85.3 Personal history of malignant neoplasm of breast; E66.9 Obesity, unspecified; Z68.32 Body mass index [BMI] 32.0-32.9, adult; F32.A Depression, unspecified; Z79.51 Long term (current) use of inhaled steroids; Z79.899 Other long term (current) drug therapy; L23.1 Allergic contact dermatitis due to adhesives; Z91.040 Latex allergy status; Z90.49 Acquired absence of other specified parts of digestive tract; Z98.890 Other specified postprocedural states; Z87.891 Personal history of nicotine dependence
CPT/HCPCS: 45378; J2003; J2704

== ENCOUNTER → 2025-05-25 09:12 | Outpatient (BNV) | payer MEDICARE, MEDICAID, SELFPAY | PROVIDERS: PCP Pediatrics; Visit Provider Internal Medicine | DX: Z12.11 Encounter for screening for malignant neoplasm of colon (principal); R19.5 Other fecal abnormalities; K57.90 Diverticulosis of intestine, part unspecified, without perforation or abscess without bleeding; Z91.199 Patient's noncompliance with other medical treatment and regimen due to unspecified reason; K64.8 Other hemorrhoids | CPT/HCPCS: G0121 ==

== ENCOUNTER 2025-10-06 11:22 | Outpatient (AMB) | payer MEDICARE, MEDICAID, SELFPAY ==
--- NOTE | 2025-10-06 11:44 | A.OFFVIS_ITS ---
Vital Signs 10/06/25 11:53 Height 5 ft 1 in Weight 207 lb 14.334 oz BMI 39.3 BP 150/94 H Blood Pressure Location Lt brachial Pulse 94 Pulse Source Pulse Oximeter Pulse Oximetry (%) 98 Oxygen Delivery Method Room Air Intake Visit Reasons: follow up Intake Note: Patient presents today for knee OA/injection follow up. Operations Clerk Required: No Information Interpreted: non-clinical & clinical Accompanied by: Self / Same As Patient Allergies latex Allergy (Intermediate, Verified 10/06/25 11:52) burning sensation adhesive tape (Adhesive Tape) Allergy (Mild, Verified 10/06/25 11:52) BLISTERS HPI Comments Details: Patient is a 70-year-old female with asthma, depression, hypertension, hyperlipidemia, GERD, and polyarticular osteoarthritis here today for follow up Interval History: Patient last seen 04/11/25 with me - Not on any DMARDs - Received bilateral knee steroid injections Today - Not on any DMARDs - States that the knee injections helped but only for a short period - C/o knee pain today Rheumatologic History: Initial history: This is a 68-year-old female with bilateral knee osteoarthritis who presents for follow-up. She was last seen by Macrina Dougherty 06/2022. She states that she continues to have bilateral knee pain. She states that she saw an orthopedist in the past and knee replacement was discussed but patient does not want to proceed with it. She states that she had bilateral knee injections about a year ago and states that it provides moderate relief. She can not think of any side effects related to steroid injections. She does not have diabetes. Current Rheumatology Medication(s): [facility] Medical History Breast cancer Hyperlipidemia COPD (chronic obstructive pulmonary disease) Osteoarthritis Obesity Fibromyalgia HTN (hypertension) Surgical History Hx of colonoscopy S/P carpal tunnel release H/O hemorrhoidectomy History of breast surgery Hx of hernia repair Hx of cholecystectomy Family History Father Diabetes Mother Breast cancer Son Lung cancer Social History Household Members: Significant Other Housing: House Alcohol intake: never Patient Tobacco Use Status: Former Tobacco user Review of Systems Narrative See HPI Physical Exam Exam Exam: Vital signs reviewed Physical Examination CONSTITUITIONAL Patient alert and cooperative. Well appearing and in no apparent painful distress MSK Knees * Right knee: No swelling noted. TTP of the knee joint line. No TTP of pes anserine bursa * Left knee: No swelling noted. TTP of the knee joint line. No TTP of pes anserine bursa. * Crepitations felt bilaterally Vital Signs: Last Vital Signs Pulse 94 10/06/25 11:53 BP 150/94 H 10/06/25 11:53 Pulse Ox 98 10/06/25 11:53 Oxygen Delivery Method Room Air 10/06/25 11:53 BMI result Body Mass Index 39.3 Office Procedures AMB Joint Injection/Aspiration Joint Injection/Aspiration Details: Procedure was explained to the patient and informed consent was obtained. ? Risks associated with the procedure were discussed with the patient including but not limited to bleeding, infection, drug reactions and reactions to the topical anesthetic. Patient made aware of signs to look out for infectious complications. The area of interest was identified and confirmed with patient. ?This was subsequently cleaned with chlorhexidine x 2. ? The area was then anesthetized using ethyl chloride spray. 40 mg Kenalog with 1 cc 1% lidocaine was injected without issue. ?Minimal to no bleeding. ?Patient tolerated procedure. Primary Site: Right Knee Prep: site was prepped using aseptic technique and ethochloride spray was applied Injected: 40 mg of, Kenalog, with 1 mL of, 1% plain Lidocaine and in the joint Approach Used: anterior Procedure: The patient tolerated the procedure well Coding 54869 - Large joint Procedure code (CPT) selection complete AMB Joint Injection/Aspiration Joint Injection/Aspiration Details: Procedure was explained to the patient and informed consent was obtained. ? Risks associated with the procedure were discussed with the patient including but not limited to bleeding, infection, drug reactions and reactions to the topical anesthetic. Patient made aware of signs to look out for infectious complications. The area of interest was identified and confirmed with patient. ?This was subsequently cleaned with chlorhexidine x 2. ? The area was then anesthetized using ethyl chloride spray. 40 mg Kenalog with 1 cc 1% lidocaine was injected without issue. ?Minimal to no bleeding. ?Patient tolerated procedure. Primary Site: Left Knee Prep: site was prepped using aseptic technique and ethochloride spray was applied Injected: 40 mg of, Kenalog, with 1 mL of and 1% plain Lidocaine Approach Used: anterior Procedure: The patient tolerated the procedure well Coding 22765 - Large joint Procedure code (CPT) selection complete Office Meds lidocaine (PF) 10 mg/mL (1 %) injection solution Performing Provider: Verna Her MD Performing Location: [facility] [place] [facility] Administered by: Venra Her MD on 10/06/25 12:56 Dose Route Admin Location Dispensed Lot Number Expiration Date [facility] Primary Montessori Teacher 1 mL Infiltration knee right 2 mL [id number] 06/18/28 23674-848-35 FR [employer] Total Dispensed Waste 2 mL 50 % Kenalog 40 mg/mL suspension for injection Performing Provider: Verna Her MD Performing Location: [facility] [place] [facility] Administered by: Verna Her MD on 10/06/25 12:56 Dose Route Admin Location Dispensed Lot Number Expiration Date [facility] Primary Montessori Teacher 40 mg intra-articular knee right 1 mL [id number] 04/17/27 [address]- 1 [employer] Total Dispensed Waste 1 mL 0 % lidocaine (PF) 10 mg/mL (1 %) injection solution Performing Provider: Verna Her MD Performing Location: [facility] [place] [facility] Administered by: Verna Her MD on 10/06/25 12:56 Dose Route Admin Location Dispensed Lot Number Expiration Date [facility] Primary Montessori Teacher 1 mL Infiltration left knee 2 mL [id number] 06/18/28 68945-889-05 LB SENI[employer]AB[employer] Total Dispensed Waste 2 mL 50 % Kenalog 40 mg/mL suspension for injection Performing Provider: Verna Her MD Performing Location: [facility] [place] [facility] Administered by: Sandra Peñaloza RN on 10/06/25 12:56 Dose Route Admin Location Dispensed Lot Number Expiration Date [facility] Primary Montessori Teacher 40 mg intra-articular knee left 1 mL [id number] 04/17/27 [address]-3 [employer] Total Dispensed Waste 1 mL 0 % Results Reviewed Results Reviewed: Laboratory Tests 02/14/25 03/15/25 12:59 12:07 WBC 6.6 RBC 4.72 Hgb 13.6 Hct 40.4 Plt Count 257 Sodium 144 Potassium 4.3 Chloride 108 Carbon Dioxide 27 BUN 19 H Creatinine 0.91 Total Bilirubin 0.4 Direct Bilirubin 0.2 AST 24 ALT 15 25-OH Vitamin D Total 94.2 XR Bilateral Knees 03/2023 FINDINGS: Right: Bone alignment is normal. No fracture or dislocation. Severe tricompartment osteoarthritis. Large joint effusion. Left: Slight varus angulation. Bone alignment is otherwise normal. No fracture or dislocation. Severe tricompartment arthritis. Small to moderate joint effusion. IMPRESSION: Severe bilateral osteoarthritis. Assessment & Plan Assessment & Plan (1) Primary osteoarthritis of knees, bilateral: Code(s): M17.0 - Bilateral primary osteoarthritis of knee Category: Medical Plan: #Bilateral knee OA Patient is a 69-year-old female with bilateral knee osteoarthritis here today for follow up. Status post steroid injection today. Plan - s/p steroid injection today - Will consider gel injections at the neck visit - RTC 4 months Plan I spent 20 minutes reviewing the record and labs, taking a history, examining the patient, discussing the treatment plan, ordering diagnostic work up and documenting in the medical record Orders: Orders AMB Joint Injection/Aspiration Today M17.0 - Bilateral primary osteoarthritis of knee AMB Joint Injection/Aspiration Today M17.0 - Bilateral primary osteoarthritis of knee Coding Level of Care Code Est Pt Level 3 (16406) Diagnoses Primary osteoarthritis of knees, bilateral M17.0 CPT Codes Coding - 00915 Large joint: 31436 - Large joint ([id number]) Coding - 46951 Large joint: 07726 - Large joint ([id number])
[2025-10-06 11:53] VITALS: BP 150/94; PULSE 94; O2SAT 98; BMI 39.3
--- OUTSIDE RECORDS SUMMARY | 2025-10-06 13:26 | XMS_ITS | Encounter Summary ---
Author Organization [employer] Address [address] [place] [address] 7 [place] [address] Care Team Providers Care Circuit Design Engineer Name Role Phone Regi Martínez MD Primary Care Provider [phone] Reason for Visit * Reason Onset Date Comments Appointment Request 01/15/2024 Encounter Details Date Type Department Care Team ([facility] st Contact Info) Description 01/15/2024 Telephone [facility] MEDICINE [address] [place], [place] [phone] Regi Martínez MD [address] [place], [place] [phone] Appointment Request Social History Tobacco Use Types Packs/Day Years Used Date Smoking Tobacco: Never Assessed Comments Unknown Sex and Gender Information Value Date Recorded Sex Assigned at Female 08/18/2022 10:19 AM EDT Legal Sex Female 10:19 AM EDT Gender Identity Female 01/29/2024 8:57 AM EDT Sexual Orientation Straight 03/15/2025 2: 20 PM EDT documented as of this encounter Miscellaneous Notes * Telephone Encounter - Adele Gottlieb - 01/15/2024 9:41 AM EDT Tc from pt requesting appt with PCP, no concerns at the moment, stated just a check up. documented in this encounter Plan of Treatment Not on file documented as of this encounter Visit Diagnoses Not on filedocumented in this encounter Care Teams Circuit Design Engineer Relationship Specialty Start Date End Date Regi Martínez MD [address] [place], [place] [phone] PCP - General Family Medicine 10/19/18 documented as of this encounter
--- OUTSIDE RECORDS SUMMARY | 2025-10-06 13:26 | XMS_ITS | Encounter Summary ---
Author Organization [employer] Address [address] [place] [address] 7t [place] [address] Care Team Providers Care Transporter Driver Name Role Phone Regi Martínez MD Primary Care Provider [phone] Reason for Visit * Reason Comments Med Refill Encounter Details Date Type Department Care Team (Late st Contact Info) Description 03/13/2023 Refill [facility] MEDICINE [address] [place], [place] [phone] Regi Martínez MD [address] [place], [place] [phone] Social History Tobacco Use Types Packs/Day Years [...] on filedocumented in this encounter Care Teams Transporter Driver Relationship Specialty Start Date End Date Regi Martínez MD [address] [place], [place] [phone] PCP - General Family Medicine 10/19/18 documented as of this encounter
--- OUTSIDE RECORDS SUMMARY | 2025-10-06 13:26 | XMS_ITS | Clinical Summary ---
Author Organization [facility] Address [address] [place] [address] Care Team Providers Care Dental Financial Coordinator Name Role Phone Unavailable Primary Care Provider [...] 2003 Zoster Vaccines (1 of 2) 2003 Depression Screening 10/19/2024 COVID-19 Vaccine (1 - 2024-2 6 season) 2025 Influenza Vaccine (#1) 2025 RSV Immunization Adult [...]
--- OUTSIDE RECORDS SUMMARY | 2025-10-06 13:26 | XMS_ITS | Encounter Summary ---
Author Organization [employer] Address [address] [facility] 7t [place] [address] Care Team Providers Care Community Service Manager Name Role Phone Regi Martínez MD Primary Care Provider [phone] Reason for Visit * Reason Onset Date Comments Medication Question 04/22/2024 Encounter Details Date Type Department Care Team ([facility] st Contact Info) Description 04/22/2024 Telephone [facility] MEDICINE [address] [place] [address] Regi Martínez MD [address] [facility] [address] [place], [place] [phone] Medication Question Social History Tobacco Use Types [...] to pcp switching pt's pharmacy from [facility] to [facility]., pt stated certain medication was not sent and was advised by [facility] pharmacy to contact pcp for prescriptions to be sent. Medication in question: Ibuprofen lisinopril 20 MG tablet D3 Super Strength 50 MCG (2000 UT) capsule minocycline 50 MG capsule Gabapentin Flovent HFA Ventolin HFA desonide (DesOwen) 0.05 % cream hydrocortisone 2.5 % cream If any questions you can contact pt at [phone] Qued all meds except ibuprofen as not on med list * Telephone Encounter - Avila Dias - 04/22/2024 1:13 PM EDT Tc from pt calling inn regards to pcp switching pt's pharmacy from [facility] to [facility] pharmacy., pt stated certain medication was not sent and was advised by [facility] pharmacy to contact pcp for prescriptions to be sent. Medication in question: Ibuprofen lisinopril 20 MG tablet D3 Super Strength 50 MCG (2000 UT) capsule minocycline 50 MG capsule Gabapentin Flovent HFA Ventolin HFA desonide (DesOwen) 0.05 % cream hydrocortisone 2.5 % cream If any questions you can contact pt at [phone] documented in this encounter Plan of Treatment Not on file documented as of this encounter Visit Diagnoses Diagnosis Hypertension, unspecified type Food insecurity Rash Rash and other nonspecific skin eruption documented in this encounter Additional Health Concerns Assessment Noted Time PHQ-9 Depression Total Score: 15 024 9:41 AM EDT documented as of this encounter Care Teams Community Service Manager Relationship Specialty Start Date End Date Regi Martínez MD 505 [place] [address] PCP - General Family Medicine 10/19/18 documented as of this encounter
--- OUTSIDE RECORDS SUMMARY | 2025-10-06 13:26 | XMS_ITS | Encounter Summary ---
Author Organization [employer] Address [address] [facility] 7t [place] [address] Care Team Providers Care Hand Miter Operator Name Role Phone Regi Martínez MD Primary Care Provider [phone] Encounter Details Date Type Department Care Team ([facility] st Contact Info) Description 04/26/2024 Orders Only [facility] MED [facility] PEDS [address] [place], [place] [phone] Regi Martínez MD [address] [place], [place] [phone] Recurrent major depressive disorder, in full remission [...] documented as of this encounter Care Teams Hand Miter Operator Relationship Specialty Start Date End Date Regi Martínez MD [address] [place] [address] PCP - General Family Medicine 10/19/18 documented as of this encounter
--- OUTSIDE RECORDS SUMMARY | 2025-10-06 13:26 | XMS_ITS | Encounter Summary ---
Author Organization [employer] Address [address] [facility] 7t [place] [address] Care Team Providers Care Training Designer Name Role Phone Regi Martínez MD Primary Care Provider [phone] Reason for Visit * Reason Onset Date Comments Medication Question 07/14/2024 Encounter Details Date Type Department Care Team ([facility] st Contact Info) Description 07/14/2024 Telephone [facility] MEDICINE [address] [place] [address] Regi Martínez MD [address] [place], [place] [phone] Medication Question Social History Tobacco Use Types [...] encounter Miscellaneous Notes * Telephone Encounter - Avila Dias - 07/28/2024 10:20 AM EDT Tc from pt returning call regarding message prior. * Telephone Encounter - Avila Dias - 07/14/2024 3:55 PM EDT Tc from pt requesting other half of her medications to be sent to [facility] pharmcy. Pt stated pcp had her medication transferred from [facility] to [facility] pharmacy she was advised by pharmacy to contact pcp regarding remaining scripts. Please contact pt at [phone]. documented in this encounter Plan of Treatment Not on file documented as of this encounter Visit Diagnoses Diagnosis Recurrent major depressive disorder, in full remission ([facility]) Gastroesophageal reflux disease without esophagitis Esophageal reflux Mixed hyperlipidemia Rash Rash and other nonspecific skin eruption Vertigo Dizziness and giddiness documented in this encounter Additional Health Concerns Assessment Noted Time PHQ-9 Depression Total Score: 15 024 9:41 AM EDT documented as of this encounter Care Teams Training Designer Relationship Specialty Start Date End Date Regi Martínez MD 505 [place] [address] PCP - General Family Medicine 10/19/18 documented as of this encounter
--- OUTSIDE RECORDS SUMMARY | 2025-10-06 13:27 | XMS_ITS | Encounter Summary ---
Author Organization [employer] Address [address] [place] [address] 7 [place] [address] Care Team Providers Care Presiding Steward Name Role Phone Regi Martínez MD Primary Care Provider [phone] Reason for Visit * Reason Comments Med Refill Encounter Details Date Type Department Care Team (Late st Contact Info) Description 10/16/2023 Refill [facility] MEDICINE [address] [place], [place] [phone] Regi Martínez MD [address] [place], [place] [phone] Recurrent major depressive disorder, in full remission [...] hyperlipidemia documented in this encounter Care Teams Presiding Steward Relationship Specialty Start Date End Date Regi Martínez MD [address] [place] [address] PCP - General Family Medicine 10/19/18 documented as of this encounter
--- OUTSIDE RECORDS SUMMARY | 2025-10-06 13:27 | XMS_ITS | Encounter Summary ---
Author Organization [employer] Address [address] [place] [address] 7 [place] [address] Care Team Providers Care Rooming House Inspector Name Role Phone Regi Martínez MD Primary Care Provider [phone] Reason for Visit * Reason Onset Date Comments Appointment Request 11/19/2023 Encounter Details Date Type Department Care Team ([facility] st Contact Info) Description 11/19/2023 Telephone [facility] MEDICINE [address] [place], [place] [phone] Regi Martínez MD [address] [place], [place] [phone] Appointment Request Social History Tobacco Use Types [...] on filedocumented in this encounter Care Teams Rooming House Inspector Relationship Specialty Start Date End Date Regi Martínez MD [address] [place], [place] [phone] PCP - General Family Medicine 10/19/18 documented as of this encounter
--- OUTSIDE RECORDS SUMMARY | 2025-10-06 13:27 | XMS_ITS | Encounter Summary ---
Author Organization [employer] Address [address] [facility] 7t [place] [address] Care Team Providers Care Assignment Editor Name Role Phone Regi Martínez MD Primary Care Provider [phone] Reason for Visit * Reason Onset Date Comments Med Refill needs appt 07/29/2023 Encounter Details Date Type Department Care Team ([facility] st Contact Info) Description 07/29/2023 Refill [facility] MEDICINE [address] [place] [address] Regi Martínez MD [address] [facility] [address] Rash; Vertigo Social History Tobacco Use Types [...] giddiness documented in this encounter Care Teams Assignment Editor Relationship Specialty Start Date End Date Rgei Martínez MD 505 [place] [address] PCP - General Family Medicine 10/19/18 documented as of this encounter
--- OUTSIDE RECORDS SUMMARY | 2025-10-06 13:27 | XMS_ITS | Encounter Summary ---
Author Organization [employer] Address [address] [place] [address] 7t [place] [address] Care Team Providers Care Gel Coat Sprayer Name Role Phone Regi Martínez MD Primary Care Provider [phone] Reason for Visit * Reason Comments Med Refill Encounter Details Date Type Department Care Team (Late st Contact Info) Description 01/15/2024 Refill [facility] [address] [place], [place] [phone] Jean Claude Reyes MD [address] [place], [place] [phone] Social History Tobacco Use Types Packs/Day Years [...] on filedocumented in this encounter Care Teams Gel Coat Sprayer Relationship Specialty Start Date End Date Regi Martínez MD [address] [place], [place] [phone] PCP - General Family Medicine 10/19/18 documented as of this encounter
--- OUTSIDE RECORDS SUMMARY | 2025-10-06 13:27 | XMS_ITS | Encounter Summary ---
Author Organization [employer] Address [address] [facility] 7t [place] [address] Care Team Providers Care Um Rn Name Role Phone Regi Martínez MD Primary Care Provider [phone] Encounter Details Date Type Department Care Team ([facility] st Contact Info) Description 10/09/2024 Orders Only [facility] MEDICINE [address] [place], [place] [phone] ProviderNoe MD Social History Tobacco Use Types Packs/Day Years [...] on file documented as of this encounter Procedures Procedure Name Priority Date/Time Associated Diagnosis Comments MAMMOGRAPHY Routine 09/02/2023 5:19 PM EST documented [...] documented as of this encounter Care Teams Um Rn Relationship Specialty Start Date End Date Regi Martínez MD 505 [place] [address] PCP - General Family Medicine 10/19/18 documented as of this encounter
--- OUTSIDE RECORDS SUMMARY | 2025-10-06 13:27 | XMS_ITS | Clinical Summary ---
Author Organization [employer] Address [address] [facility] 7t [place] [address] Care Team Providers Care Oral And Maxillofacial Surgery Resident Name Role Phone Regi Martínez MD Primary Care Provider [phone] Allergies Active Allergy Reactions Criticality Noted Date Comments Latex 03/19/2017 Other Reaction(s): YAN ON SKIN, Rash/Dermatitis Wound Dressing Adhesive 01/29/2024 Medications * This document contains information received from the source organization and may not represent a complete record from that organization. hydrocortisone 2.5 % creamIndications: Rash APPLY TO AFFECTED AREA OF RECTUM TWICE A DAY 28 g 1 03/13/20 23 Active fluticasone (Flonase) 50 MCG/ACT nasal sprayIndications: Recurrent major depressive disorder, in full remission (CMS/HCC),Gastroe sophageal reflux disease without esophagitis,Mixed hyperlipidemia SPRAY 1 SPRAY INTO EACH NOSTRIL EVERY DAY WHILE LOOKING DOWN 48 mL 3 07/27/20 24 Active desonide (DesOwen) 0.05 % cream Apply topically 2 times daily. 15 g 3 12/14/19 25 Active Blood Pressure kit Check BP daily prn 1 kit 12/14/19 25 Active Mometasone Furoate (Asmanex HFA) 100 MCG/ACT aerosolIndication s: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) ([facility]) Inhale 1 puff bid 39 g 2 12/14/19 25 Active Umeclidinium Humphrey (Incruse Ellipta) 62.5 MCG/ACT aerosol powder Inhale 1 Act (62.5 mcg) Once per day. 90 each 1 04/04/20 25 Active meclizine (Antivert) 25 MG tabletIndications :Vertigo TAKE ONE TABLET THREE TIMES DAILY IN THE MORNING, AT NOON, AND AT BEDTIME NEEDED FOR DIZZINESS 30 tablet 3 5 9:12 AM EST 04/10/20 25 Active Ventolin HFA 108 (90 Base) MCG/ACT inhalerIndication s: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) ([facility]) INHALE TWO PUFFS EVERY 4 HOURS NEEDED FOR WHEEZING 18 g 1 04/17/20 25 Active buPROPion XL (Wellbutrin XL) 150 MG 24 hr tabletIndications :Grief TAKE ONE TABLET DAILY, DO NOT BREAK, CRUSH, DISSOLVE OR CHEW 90 tablet 1 5 9:12 AM EST 04/18/20 25 Active clotrimazole-beta methasone (Lotrisone) cream APPLY TO THE AFFECTED AREA(S) EVERY TWELVE HOURS 45 g 2 05/01/20 25 Active minocycline 50 MG capsule TAKE ONE CAPSULE DAILY 90 capsule 1 5 9:12 AM EST 05/09/20 25 Active traZODone (Desyrel) 100 MG tablet TAKE 2 TABLETS BY MOUTH ONCE A DAY AT BEDTIME 180 tablet 1 06/28/20 25 Active cholecalciferol VITAMIN D (Vitamin D-3) 50 MCG (2000 UT) capsule TAKE ONE CAPSULE EVERY DAY 90 capsule 3 06/28/20 25 Active Calcium Carb-Cholecalcife rol 600-10 MG-MCG tablet TAKE ONE TABLET EVERY TWELVE HOURS 180 tablet 3 06/28/20 25 Active gabapentin (Neurontin) 300 MG capsule TAKE ONE CAPSULE BY MOUTH AT BEDTIME 90 capsule 1 08/07/20 25 Active DULoxetine (Cymbalta) [address] capsule TAKE ONE CAPSULE DAILY 90 capsule 1 5 9:12 AM EST 09/08/20 25 Active simvastatin (Zocor) 40 MG tabletIndications :Recurrent major depressive disorder, in full remission (CMS/HCC),Gastroe sophageal reflux disease without esophagitis,Mixed hyperlipidemia TAKE ONE TABLET DAILY 90 tablet 1 5 9:12 AM EST 09/08/20 25 Active nabumetone (Relafen) 750 MG tablet TAKE ONE TABLET TWICE DAILY IN THE MORNING AND AT BEDTIME NEEDED MILD PAIN 60 tablet 3 5 9:12 AM EST 09/13/20 25 Active valACYclovir (Valtrex) 1 g tablet TAKE ONE TABLET BY MOUTH ONCE DAILY 90 tablet 5 9:12 AM EST 09/21/20 25 Active ibuprofen (IBU) 800 MG tablet TAKE ONE TABLET THREE TIMES DAILY NEEDED FOR PAIN 60 tablet 5 9:12 AM EST 09/21/20 25 Active lisinopril 20 MG tabletIndications :Hypertension, unspecified type TAKE ONE TABLET DAILY 90 tablet 5 9:12 AM EST 09/21/20 25 Active omeprazole (PriLOSEC) [address] capsuleIndication s:Recurrent major depressive disorder, in full remission (CMS/HCC),Gastroe sophageal reflux disease without esophagitis,Mixed hyperlipidemia TAKE ONE CAPSULE BY MOUTH EVERY DAY BEFORE BREAKFAST 90 capsule 5 9:12 AM EST 09/21/20 25 Active lisinopril 20 MG tabletIndications :Hypertension, unspecified type Take 1 tablet (20 mg) by mouth Once per day. 90 tablet 3 07/27/20 24 025 Discontinued ibuprofen 800 MG tablet Take 1 tab orally tid prn pain 60 tablet 3 07/28/20 24 025 Discontinued omeprazole (PriLOSEC) [address] capsuleIndication s:Recurrent major depressive disorder, in full remission (CMS/HCC),Gastroe sophageal reflux disease without esophagitis,Mixed hyperlipidemia TAKE ONE CAPSULE DAILY BEFORE BREAKFAST 90 capsule 1 02/08/20 25 025 Discontinued DULoxetine (Cymbalta) [address] capsule TAKE ONE CAPSULE DAILY 90 capsule 1 02/09/20 25 025 Discontinued simvastatin (Zocor) 40 MG tabletIndications :Recurrent major depressive disorder, in full remission (CMS/HCC),Gastroe sophageal reflux disease without esophagitis,Mixed hyperlipidemia TAKE ONE TABLET DAILY 90 tablet 1 02/09/20 25 025 Discontinued nabumetone (Relafen) 750 MG tablet TAKE ONE TABLET TWICE DAILY IN THE MORNING AND AT BEDTIME NEEDED MILD PAIN 60 tablet 3 02/18/20 25 025 Discontinued valACYclovir (Valtrex) 1 g tablet Take 1 tablet (1,000 mg) by mouth Once per day. 90 tablet 03/15/20 25 025 Discontinued Active Problems Problem Noted Date Diagnosed Date Positive colorectal cancer screening using Colog uard test 03/15/2025 Primary osteoarthritis of both knees 12/14/2024 Food [...] months ago during a routine surgery at [facility] [place]. This event has led [...] insecurity). 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) 02/01/2024 Grief 01/29/2024 Assessment & Plan (02/24/2024 [...] months ago during a routine surgery at [facility] [place]. This event has led [...] Health Integration Plan Internal Follow up with [facility] External OP BH therapy referral Patient Self Plan Patient to utilize skills provided in intervention , Patient to reach out to [facility] team as needed, Comply with medication , Patient to engage in OP BH therapy , and Patient to reach out to [facility] as needed Hypertension 2012 Mixed hyperlipidemia 2012 Chronic obstructive lung disease 2012 Overweight 2012 Malignant neoplasm of breast 05/08/2010 Encounters Date Type Department Care Team Description 09/20/[address] [facility] [address] [place] [address] Regi Martínez MD Hypertension, unspecified type; Recurrent major depressive disorder, in full remission (CMS/HCC); Gastroesophageal reflux disease without esophagitis; Mixed hyperlipidemia 09/12/[address] [facility] [address] [place] [address] Regi Martínez MD 09/08/[address] [facility] [address] [place] [address] Regi Martínez MD Recurrent major depressive disorder, in full remission (CMS/HCC); Gastroesophageal reflux disease without esophagitis; Mixed hyperlipidemia 08/05/[address] [facility] [address] [place] [address] Regi Martínez MD from Last 3 Months Social History Tobacco [...] Orientation Straight 03/15/2025 2: 20 PM EDT Last Filed Vital Signs Vital Sign Reading Time Taken Comments Blood Pressure 160/94 03/15/2025 11:15 AM EDT Pulse 84 03/15/2025 11:15 AM EDT Temperature 36.8 C (98.3 F) 03/15/2025 11:15 AM EDT Respiratory Rate 16 03/15/2025 11:15 AM EDT Oxygen Saturation 96% 03/15/2025 11:15 AM EDT Inhaled Oxygen Concentration - - Weight 87.1 kg (192 lb) 03/15/2025 11:15 AM EDT Height 157.5 cm (5' 2 ) 03/15/2025 11:15 AM EDT Body Mass Index 35.12 03/15/2025 11:15 AM EDT Plan of Treatment Health Maintenance Due Date Last Done Comments CT Colonography 1953 FIT 1955 Sigmoidoscopy 1955 Hepatitis C Screening 1971 RSV Patients and Patients Aged 60 years or older (1 - Risk 50-74 years 1-dose series) 2003 Zoster Vaccines (1 of 2) 2003 Pneumococcal Vaccine: 50+ Years (2 of 2 - PPSV23, PCV20, or PCV21) 09/03/2018 07/09/2018 Mammogram 09/02/2024 09/02/2023 SDOH Screening 01/28/2025 01/29/2024 Tobacco Screening 01/28/2025 01/29/2024 FOBT 02/14/2025 02/15/2024 COVID-19 Vaccine (1 - 2024-2 6 season) 2025 Influenza Vaccine (#1) 2025 9, 07/01/2013 Colonoscopy 09/14/2025 05/25/2025 Colorectal Cancer Screening 09/14/2025 Alcohol/Substance Use Screening 12/14/2025 12/14/2024 Depression Screening 12/14/2025 12/14/2024, 12/14/2024 FIT DNA/Cologuard 02/14/2027 02/15/2024 DTaP/Tdap/Td Vaccines (2 - T d or Tdap) 11/25/2028 11/25/2018 Lipid Panel 03/15/2030 03/15/2025, 01/29/2024 HIB Vaccines Aged Out No longer [...] Procedure Name Priority Date/Time Associated Diagnosis Comments COLONOSCOPY Routine 05/25/2025 LIPID PANEL, STANDARD Routine 03/15/2025 12:07 PM EDT Overweight Primary hypertension Impaired fasting glucose LAB COLOGUARD COLON CANCER SCREEN Routine 02/15/2024 5:00 AM EDT Primary hypertension Colon cancer screening MAMMOGRAPHY Routine 09/02/2023 5:19 PM EST from Last 3 Months or Most Recently Relevant to Health Maintenance Results * Colonoscopy (05/25/2025) Colonoscopy Normal Normal Narrative Shavonne Greco - 05/25/2025 Recommended repeat in 3 months due to poor prep . See external hospital admission note on 05/25/2025 us Historical Provider HEALTH MAINTENANCE Final Result * (ABNORMAL) Lipid Panel, Standard (03/15/2025 12:07 PM EDT) Triglycerides 56 <150 mg/dL [facility] Comment:Desirable Triglyceri de: less than 150 mg/dLBorderline High Triglyceride 150-199 mg/dLHigh Triglyceride: 200-499 mg/dLVery High Triglyceride: greater than or equal to 5OO mg/dL Cholesterol 193 <200 mg/dL [facility] Comment:Desirable Cholestero l: less than 200 mg/dLBorderline High Cholesterol: 200-239 mg/dLHigh Cholesterol: greater than 239 mg/dL LDL Cholesterol Calculated 121(H) <100 mg/dL [facility] Comment:Desirable LDL: less than 100 mg/dLNear Optimal/Above Optimal LDL: 110- 129 mg/dLBorderline High LDL: 130-159 mg/dLHigh LDL: 160-189 mg/dLVery High LDL: greater than or equal to 190 mg/dL HDL Cholesterol 61 >40 mg/dL [facility] Comment:Desirable HDL: great er than 40 mg/dL Note: This HDL assay may give artificially low results in patients with liver disease. Blood Venous blood specimen / Unknown 03/15/2025 12:07 PM EDT 03/15/2025 2:14 PM EDT us Regi Martínez MD LAB BLOOD ORDERABLES Final Re sult [facility] [address] [place] [phone] * (ABNORMAL) Cologuard?? colon cancer screening (02/15/2024 5:00 AM EDT) Cologuard Result Positive( A) Negative 02/22/2024 9:51 AM EDT [facility] (CLIA #:[id number]) Comment: POSITIVE TEST RESULT. A positive Cologuard result should be followed with a colonoscopy or visual examination of the colon. The normal value (reference range) for this assay is negative. TEST DESCRIPTION: Composite algorithmic analysis of stool DNA-biomarkers with hemoglobin immunoassay. Quantitative values of individual biomarkers are not [...] (Sandee Plaza al, N Engl J Med 2014;370(14):7801-6314.) Cologuard may produce a false negative or false positive result (no colorectal cancer or precancerous polyp present at colonoscopy follow up). A negative Cologuard test result does not guarantee the absence of CRC or advanced adenoma (pre-cancer). The current Cologuard screening interval is every 3 years. ([employer] and U.S. Multi-Society Task Force). Cologuard performance data in a 10,000 patient pivotal study using colonoscopy as the reference method can be accessed at the following location: www.[employer]results. Additional description of the Cologuard test process, warnings and precautions can be found at [email or web address]. Stool specimen (specimen) 02/15/2024 5:00 AM EDT 02/16/2024 10:49 AM EDT Regi Martínez MD LAB MOLECULAR DIAGNOSTICS ORD ERABLES Final Result [facility] (CLIA #:[id number]) [place] [address], * Hm Mammography (09/02/2023 5:19 PM EST) Anatomical Region Laterality Modality Other Historical Provider HEALTH MAINTENANCE Final Result from Last 3 Months or Most Recently Relevant to Health Maintenance Insurance MEDICARE [facility] [address] STANDARD Care Teams Oral And Maxillofacial Surgery Resident Relationship Specialty Start Date End Date Regi Martínez MD [address] [place] [address] PCP - General Family Medicine 10/19/18
--- OUTSIDE RECORDS SUMMARY | 2025-10-06 13:27 | XMS_ITS | Encounter Summary ---
Author Organization [employer] Address [address] [place] [address] [address] [place] [address] Care Team Providers Care Swim Instructor Name Role Phone Regi Martínez MD Primary Care Provider [phone] Reason for Visit * Reason Comments Med Refill Encounter Details Date Type Department Care Team (Late st Contact Info) Description 12/30/2023 Refill [facility] [address] [place], [place] [phone] Jean Claude Reyes MD [address] [place], [place] [phone] Social History Tobacco Use Types Packs/Day Years [...] on filedocumented in this encounter Care Teams Swim Instructor Relationship Specialty Start Date End Date Regi Martínez MD [address] [place], [place] [phone] PCP - General Family Medicine 10/19/18 documented as of this encounter
--- OUTSIDE RECORDS SUMMARY | 2025-10-06 13:27 | XMS_ITS | Encounter Summary ---
Author Organization [employer] Address [address] [place] [address] 7 [place] [address] Care Team Providers Care Taffy Candy Maker Name Role Phone Regi Martínez MD Primary Care Provider [phone] Reason for Visit * Reason Comments Med Refill Encounter Details Date Type Department Care Team (Late st Contact Info) Description 01/15/2024 Refill [facility] MEDICINE [address] [place], [place] [phone] Regi Martínez MD [address] [place], [place] [phone] Recurrent major depressive disorder, in full remission [...] giddiness documented in this encounter Care Teams Taffy Candy Maker Relationship Specialty Start Date End Date Regi Martínez MD [address] [place] [address] PCP - General Family Medicine 10/19/18 documented as of this encounter
--- OUTSIDE RECORDS SUMMARY | 2025-10-06 13:27 | XMS_ITS | Encounter Summary ---
Author Organization [employer] Address [address] [place] [address] 7 [place] [address] Care Team Providers Care Electric Razor Assembler Name Role Phone Regi Martínez MD Primary Care Provider [phone] Reason for Visit * Reason Comments Med Refill Encounter Details Date Type Department Care Team (Late st Contact Info) Description 09/21/2023 Refill [facility]IC[facility] [address] [place], [place] [phone] Regi Martínez MD [address] [place], [place] [phone] Recurrent major depressive disorder, in full remission [...] hyperlipidemia documented in this encounter Care Teams Electric Razor Assembler Relationship Specialty Start Date End Date Regi Martínez MD [address] [place] [address] PCP - General Family Medicine 10/19/18 documented as of this encounter
--- OUTSIDE RECORDS SUMMARY | 2025-10-06 13:27 | XMS_ITS | Encounter Summary ---
Author Organization [employer] Address [address] [place] [address] [address] [place] [address] Care Team Providers Care Skein Dyer Name Role Phone Regi Martínez MD Primary Care Provider [phone] Reason for Visit * Reason Comments Med Refill Encounter Details Date Type Department Care Team (Late st Contact Info) Description 01/01/2024 Refill [facility] MEDICINE [address] [place], [place] [phone] Regi Martínez MD [address] [place], [place] [phone] Social History Tobacco Use Types Packs/Day Years [...] on filedocumented in this encounter Care Teams Skein Dyer Relationship Specialty Start Date End Date Regi Martínez MD [address] [place], [place] [phone] PCP - General Family Medicine 10/19/18 documented as of this encounter
--- OUTSIDE RECORDS SUMMARY | 2025-10-06 13:27 | XMS_ITS | Encounter Summary ---
Author Organization [employer] Address [address] [place] [address] [address] [place] [address] Care Team Providers Care Applique Cutter Name Role Phone Regi Martínez MD Primary Care Provider [phone] Reason for Visit * Reason Comments Med Refill Encounter Details Date Type Department Care Team (Late st Contact Info) Description 12/30/2023 Refill [facility] MEDICINE [address] [place], [place] [phone] Regi Martínez MD [address] [place], [place] [phone] Recurrent major depressive disorder, in full remission [...] eruption documented in this encounter Care Teams Applique Cutter Relationship Specialty Start Date End Date Regi Martínez MD [address] [place] [address] PCP - General Family Medicine 10/19/18 documented as of this encounter
--- OUTSIDE RECORDS SUMMARY | 2025-10-06 13:27 | XMS_ITS | Encounter Summary ---
Author Organization [email or web address] Address [address] [place] [address] 7t [place] [address] Care Team Providers Care Supervisor [employer] Name Role Phone Regi Martínez MD Primary Care Provider Reason for Visit * Reason Comments Med Refill Encounter Details Date Type Department Care Team ([facility] st Contact Info) Description 09/17/2023 Refill [facility] [address] [place] [address] Regi Martínez MD [address] [place] [address] Social History Tobacco Use Types Packs/Day Years [...] on filedocumented in this encounter Care Teams Supervisor [employer] Relationship Specialty Start Date End Date Regi Martínez MD [address] [place], [place] [phone] PCP - General Family Medicine 10/19/18 documented as of this encounter
--- OUTSIDE RECORDS SUMMARY | 2025-10-06 13:27 | XMS_ITS | Encounter Summary ---
Author Organization [employer] Address [address] [place] [address] [address]t [place] [address] Care Team Providers Care Director Retirement Name Role Phone Regi Martínez MD Primary Care Provider [phone] Reason for Visit * Reason Comments Med Refill Encounter Details Date Type Department Care Team (Late st Contact Info) Description 12/30/[address] [facility] MEDICINE [address] [place], [place] [phone] Regi Martínez MD [address] [place], [place] [phone] Social History Tobacco Use Types Packs/Day Years [...] filedocumented in this encounter Care Teams Director Retirement Relationship Specialty Start Date End Date Regi Martínez MD [address] [place], [place] [phone] PCP - General Family Medicine 10/19/18 documented as of this encounter
--- OUTSIDE RECORDS SUMMARY | 2025-10-06 13:27 | XMS_ITS | Encounter Summary ---
Author Organization [employer] Address [address] [facility] 7t [place] [address] Care Team Providers Care Dog Behaviorist Name Role Phone Regi Martínez MD Primary Care Provider [phone] Reason for Visit * Reason Onset Date Comments [facility] 01/26/2024 Encounter Details Date Type Department Care Team ([facility] st Contact Info) Description 01/26/2024 Telephone [facility] MEDICINE [address] [place] [address] Regi Martínez MD [address] [facility] [address] [place], [place] [phone] [facility] Social History Tobacco Use Types Packs/Day Years [...] on filedocumented in this encounter Care Teams Dog Behaviorist Relationship Specialty Start Date End Date Regi Martínez MD [address] [place] [address] PCP - General Family Medicine 10/19/18 documented as of this encounter
--- OUTSIDE RECORDS SUMMARY | 2025-10-06 13:27 | XMS_ITS | Encounter Summary ---
Author Organization [employer] Address [address] [place] [address] [address] [place] [address] Care Team Providers Care Screen Printing Paster Name Role Phone Regi Martínez MD Primary Care Provider [phone] Reason for Visit * Reason Comments Med Refill Encounter Details Date Type Department Care Team (Late st Contact Info) Description 12/30/2023 Refill [facility] MEDICINE [address] [place], [place] [phone] Regi Martínez MD [address] [place], [place] [phone] Recurrent major depressive disorder, in full remission [...] giddiness documented in this encounter Care Teams Screen Printing Paster Relationship Specialty Start Date End Date Regi Martínez MD [address] [place] [address] PCP - General Family Medicine 10/19/18 documented as of this encounter
== END 2025-10-06 12:01 | disposition home or self-care (01) ==
LOC: HO.RHES 11:23
PROVIDERS: PCP Pediatrics; Visit Provider Student in an Organized Health Care Education/Training Program
DX: M17.0 Bilateral primary osteoarthritis of knee (principal); M25.561 Pain in right knee; M25.562 Pain in left knee
CPT/HCPCS: 20610; 99213

== ENCOUNTER → 2025-10-06 11:22 | Outpatient (BNVA) | payer MEDICARE, MEDICAID, SELFPAY | PROVIDERS: PCP Pediatrics; Visit Provider Student in an Organized Health Care Education/Training Program | DX: M17.0 Bilateral primary osteoarthritis of knee (principal); I10 Essential (primary) hypertension; Z87.891 Personal history of nicotine dependence | CPT/HCPCS: 20610; 99212; J2003; J3301 ==